=== PATIENT | male | born 1935 | race Caucasian/White ===

== ENCOUNTER 2018-10-30 17:49 | Inpatient (IN) | payer MEDICARE ==
--- NOTE | 2018-10-30 17:54 | ER Document Report ---
ED General - General Stated Complaint: SHORTNESS OF BREATH Notes: Patient is a 83-year-old male with COPD and chronic kidney disease that presents to the emergency department for chief complaint of shortness of breath or difficulty breathing. Patient states that he started having difficulty b reathing earlier today and got progressively worse over the course of the day, denies associated chest pain. He does state he has COPD, was given Solu-Medrol and 2 breathing treatments by EMS, and placed on CPAP, which did improve his breathing. He states he usually wears 2-1/2 L of oxygen by nasal cannula at home 24 hours a day. He denies any nausea, vomiting, diaphoresis, lightheadedness, dizziness, abdominal pain, dysuria hematuria recently. Past Medical History: COPD, emphysema, hypertension, chronic kidney disease Past Surgical History: Denies recent or pertinent surgical history Social History: Former smoker, denies current alcohol or drug use. Family History: Reviewed and noncontributory for presenting illness Allergies: Reviewed, see documented allergy list. REVIEW OF SYSTEMS: Other than noted above, the 12 point review of systems was reviewed with the patient and were negative, all pertinent findings are included in the HPI. PHYSICAL EXAMINATION: Vital signs reviewed, nursing noted reviewed. GENERAL: Elderly male, noted to be in acute respiratory distress. HEAD: Atraumatic, normocephalic. EYES: Eyes appear normal, extraocular movements intact, sclera anicteric, conjunctiva are normal. ENT: nares patent, oropharynx clear without exudates. Moist mucous membranes. NECK: Normal range of motion, supple without lymphadenopathy LUNGS: Coarse lung sounds throughout, rhonchi and wheezing noted in all lung yu. Patient is in respiratory distress. HEART: Heart rate borderline tachycardic, regular rhythm, no audible murmur. ABDOMEN: Soft, obese, nontender, normoactive bowel sounds. No rebound, guarding, or rigidity. No masses appreciated. EXTREMITIES: Bilateral lower extremity edema, with stasis skin changes, no signs of cellulitis. Distal pulses intact cap refill less than 3 seconds in all digits. NEUROLOGICAL: No focal neurological deficits. Moves all extremities spontaneously Motor and sensory grossly intact on exam. PSYCH: Increased work of breathing, patient answering questions appropriately, but has conversational dyspnea and is in distress SKIN: Warm, Dry, normal turgor, no rashes or lesions noted on exposed skin - Related Data Allergies/Adverse Reactions: No Known Allergies Allergy (Unverified 10/30/18 18:35) Past Medical History - Social History Smoking Status: Former Smoker Family History: Reviewed & Not Pertinent Physical Exam - Vital signs Vitals: Resp Pulse Ox 15 100 10/30/18 17:53 10/30/18 17:53 Course - Re-evaluation Re-evalutation: Patient seen and examined vital signs reviewed. Laboratory data and imaging were ordered as appropriate for the patient's presenting symptoms and complaint, with consideration of any critical or life threatening conditions that may be associated with their obtained history and exam as noted above. Patient was treated with BiPAP therapy, which she was improving on, is given IV Lasix, IV magnesium, is already received IV Solu-Medrol, and DuoNeb breathing treatments by EMS, he also received IV calcium gluconate and bicarb, for his mild hyperkalemia. Results were reviewed when available and demonstrated renal impairment, likely this patient's baseline although no prior for comparison, no leukocytosis, chest x-ray demonstrated scarring, but no focal infiltrate. The patient was re-evaluated and was improved on BiPAP Evaluation was most consistent with acute on chronic respiratory failure with hypercapnia, hyperkalemia Results were discussed with the patient at this point after careful consideration I feel that that patient should be admitted to the hospital. This was discussed with the patient that it is in the best interest for their care to be admitted for further evaluation and management. Patient agreed with this plan of care. A call was placed to the admitted physician, Dr. Caba who graciously accepted the patient onto their service. *Note is created using voice recognition software and may contain spelling, syntax or grammatical errors. Laboratory 10/30/18 10/30/18 10/30/18 18:10 18:10 18:10 WBC 6.6 RBC 4.44 Hgb 12.1 L Hct 37.6 L MCV 85 MCH 27.3 MCHC 32.3 RDW 14.9 H Plt Count 176 Seg Neutrophils % 73.2 Lymphocytes % 17.4 Monocytes % 6.7 Eosinophils % 2.6 Basophils % 0.1 Absolute Neutrophils 4.8 Absolute Lymphocytes 1.1 Absolute Monocytes 0.4 Absolute Eosinophils 0.2 Absolute Basophils 0.0 Carbonic Acid HCO3/H2CO3 Ratio ABG pH ABG pCO2 ABG pO2 ABG HCO3 ABG Total CO2 ABG O2 Saturation ABG Base Excess FiO2 Sodium 139.0 Potassium 5.7 H Chloride 106 Carbon Dioxide 24 Anion Gap 9 BUN 47 H Creatinine 2.15 H Est GFR ( Amer) 36 L Est GFR (Non-Af Amer) 30 L Glucose 187 H Lactic Acid Calcium 9.6 Total Bilirubin 0.3 Direct Bilirubin 0.3 Neonat Total Bilirubin Not Reportable Neonat Direct Bilirubin Not Reportable Neonat Indirect Bili Not Reportable AST 26 ALT 32 Alkaline Phosphatase 74 Troponin I 0.041 NT-Pro-B Natriuret Pep 500 H Total Protein 7.0 Albumin 4.1 Urine Color Urine Appearance Urine pH Ur Specific [place] Urine Protein Urine Glucose (UA) Urine Ketones Urine Blood Urine Nitrite Urine Bilirubin Urine Urobilinogen Ur Leukocyte Esterase Urine WBC (Auto) Urine RBC (Auto) U Hyaline Cast (Auto) Urine Ascorbic Acid 10/30/18 10/30/18 10/30/18 18:10 18:45 19:17 WBC RBC Hgb Hct MCV MCH MCHC RDW Plt Count Seg Neutrophils % Lymphocytes % Monocytes % Eosinophils % Basophils % Absolute Neutrophils Absolute Lymphocytes Absolute Monocytes Absolute Eosinophils Absolute Basophils Carbonic Acid 1.46 H HCO3/H2CO3 Ratio 15:1 ABG pH 7.30 L ABG pCO2 48.4 H ABG pO2 169.6 H ABG HCO3 23.3 ABG Total CO2 24.8 ABG O2 Saturation 99.0 H ABG Base Excess -3.3 FiO2 45% Sodium Potassium Chloride Carbon Dioxide Anion Gap BUN Creatinine Est GFR ( Amer) Est GFR (Non-Af Amer) Glucose Lactic Acid 0.9 Calcium Total Bilirubin Direct Bilirubin Neonat Total Bilirubin Neonat Direct Bilirubin Neonat Indirect Bili AST ALT Alkaline Phosphatase Troponin I NT-Pro-B Natriuret Pep Total Protein Albumin Urine Color STRAW Urine Appearance CLEAR Urine pH 6.0 Ur Specific [place] 1.012 Urine Protein >=500 H Urine Glucose (UA) 150 H Urine Ketones NEGATIVE Urine Blood NEGATIVE Urine Nitrite NEGATIVE Urine Bilirubin NEGATIVE Urine Urobilinogen NEGATIVE Ur Leukocyte Esterase NEGATIVE Urine WBC (Auto) 1 Urine RBC (Auto) 2 U Hyaline Cast (Auto) 1 Urine Ascorbic Acid NEGATIVE Chest X-Ray 10/30/18 17:51 IMPRESSION: No consolidation or pneumothorax. Right basilar subpleural scarring -subsegmental atelectasis. Chronic interstitial changes and small calcified granulomas. No significant pleural effusion. - Vital Signs Vital signs: Temp Pulse Resp BP Pulse Ox 98 F 24 H 192/71 H 100 10/30/18 18:46 10/30/18 20:46 10/30/18 20:31 10/30/18 20:46 - Laboratory Result Diagrams: 10/30/18 18:10 10/30/18 18:10 Laboratory results interpreted by me: 10/30/18 10/30/18 10/30/18 18:10 18:10 18:10 Hgb 12.1 L Hct 37.6 L RDW 14.9 H Carbonic Acid ABG pH ABG pCO2 ABG pO2 ABG O2 Saturation Potassium 5.7 H BUN 47 H Creatinine 2.15 H Est GFR ( Amer) 36 L Est GFR (Non-Af Amer) 30 L Glucose 187 H NT-Pro-B Natriuret Pep 500 H Urine Protein Urine Glucose (UA) 10/30/18 10/30/18 18:45 19:17 Hgb Hct RDW Carbonic Acid 1.46 H ABG pH 7.30 L ABG pCO2 48.4 H ABG pO2 169.6 H ABG O2 Saturation 99.0 H Potassium BUN Creatinine Est GFR ( Amer) Est GFR (Non-Af Amer) Glucose NT-Pro-B Natriuret Pep Urine Protein >=500 H Urine Glucose (UA) 150 H - EKG Interpretation by Me Additional EKG results interpreted by me: EKG demonstrates sinus rhythm with a ventricular rate of 81 bpm, there is T wave inversion in leads I, aVL, V5 and V6. No ST elevation, no prior for comparison. Critical Care Note - Critical Care Note Total time excluding time spent on procedures (mins): 40 Comments: Critical care time 40 minutes exclusive from separate billable procedures for a patient requiring complex medical decision making, and high potential for clinical deterioration. In a patient with acute on chronic respiratory failure requiring BiPAP, and hyperkalemia requiring treatment. Time spent obtaining history from patient or surrogate, discussions with consultants, development of treatment plan with patient or surrogate, evaluation of patient's response to t reatment, examination of patient, ordering and performing treatments and interventions, ordering and review of laboratory studies, re-evaluation of patient's condition, ordering and review of radiographic studies and review of old charts Discharge - Discharge Clinical Impression: Hyperkalemia, Acute exacerbation of chronic obstructive pulmonary disease (COPD) Acute and chronic respiratory failure Qualifiers: Respiratory failure complication: hypercapnia Qualified Code(s): J96.22 - Acute and chronic respiratory failure with hypercapnia Condition: Stable Disposition: ADMITTED INPATIENT Admitting Provider: Rosales (Hospitalist) Unit Admitted: [facility]
--- NOTE | 2018-10-30 18:33 | RADIOLOGY REPORT (SQ) ---
EXAM DESCRIPTION: CHEST SINGLE VIEW COMPLETED DATE/TIME: 10/30/2018 6:16 pm REASON FOR STUDY: bed mp db COMPARISON: None. EXAM PARAMETERS: NUMBER OF VIEWS: One view. TECHNIQUE: Single frontal radiographic view of the chest acquired. RADIATION DOSE: NA LIMITATIONS: None. FINDINGS: LUNGS AND PLEURA: No consolidation or pneumothorax. Right basilar subpleural scarring -luis bsegmental atelectasis. Chronic interstitial changes and small calcified granulomas. No significant pleural effusion. MEDIASTINUM AND HILAR STRUCTURES: No masses. Contour normal. HEART AND VASCULAR STRUCTURES: Heart normal in size. Normal vasculature. BONES: No acute findings. HARDWARE: None in the chest. OTHER: No other significant finding. IMPRESSION: No consolidation or pneumothorax. Right basilar subpleural scarring -subsegmental atele ctasis. Chronic interstitial changes and small calcified granulomas. No significant pleural effusio n. TECHNICAL DOCUMENTATION: JOB ID: [id number] 2010 [employer]- All Rights Reserved Reading location - IP/workstation name: [email or web address]
[2018-10-30 18:39] LABS: ABSOLUTE EOSINOPHILS # (AUTO) 0.2 10^3/uL (0.0-0.6); ABSOLUTE LYMPHOCYTES (AUTO) 1.1 10^3/uL (0.5-4.7); ABSOLUTE MONOCYTES (AUTO) 0.4 10^3/uL (0.1-1.4); ABSOLUTE NEUT (AUTO) 4.8 10^3/uL (1.7-8.2); BASOPHILS % (AUTO) 0.1 % (0-2); EOSINOPHILS % (AUTO) 2.6 % (0-6); HEMATOCRIT 37.6 % (37.9-51.0); HEMOGLOBIN 12.1 g/dL (13.5-17.0); LYMPHOCYTES % (AUTO) 17.4 % (13-45); MEAN CORPUSCULAR HEMOGLOBIN 27.3 pg (27.0-33.4); MEAN CORPUSCULAR HGB CONC 32.3 g/dL (32.0-36.0); MEAN CORPUSCULAR VOLUME 85 fl (80-97); MONOCYTES % (AUTO) 6.7 % (3-13); PLATELET COUNT 176 10^3/uL (150-450); RED BLOOD COUNT 4.44 10^6/uL (4.35-5.55); RED CELL DISTRIBUTION WIDTH 14.9 % (11.5-14.0); SEGMENTED NEUTROPHILS % (AUTO) 73.2 % (42-78); TOTAL CELLS COUNTED % (AUTO) 100 %; WHITE BLOOD COUNT 6.6 10^3/uL (4.0-10.5)
[2018-10-30 18:54] LABS: ALANINE AMINOTRANSFERASE 32 U/L (21-72); ALBUMIN 4.1 g/dL (3.5-5.0); ALKALINE PHOSPHATASE 74 U/L (38-126); ANION GAP 9 (5-19); ASPARTATE AMINO TRANSFERASE 26 U/L (17-59); BILIRUBIN,DIRECT 0.3 mg/dL (0.0-0.4); BILIRUBIN,TOTAL 0.3 mg/dL (0.2-1.3); BLOOD UREA NITROGEN 47 mg/dL (7-20); CALCIUM 9.6 mg/dL (8.4-10.2); CARBON DIOXIDE 24 mmol/L (22-30); CHLORIDE 106 mmol/L (98-107); GLUCOSE 187 mg/dL (75-110); POTASSIUM 5.7 mmol/L (3.6-5.0)
[2018-10-30] MEDS ORDERED: CALCIUM GLUCONATE 1000 MG/10 ML INJ IV ONE (18:59)
[2018-10-30] MEDS ORDERED: FUROSEMIDE INJ/PF 20 MG/2 ML SDV IV ONE (18:59)
[2018-10-30] MEDS ORDERED: SODIUM BICARBONATE 8.4% INJ 50 MEQ/50 ML DISP.SYRIN IV ONE (19:00)
[2018-10-30 19:12] LABS: APPEARANCE,URINE CLEAR; BILIRUBIN,URINE NEGATIVE (NEGATIVE); COLOR,URINE STRAW; GLUCOSE, URINE 150 mg/dL (NEGATIVE); KETONES,URINE NEGATIVE (NEGATIVE); LEUKOCYTE ESTERASE,URINE NEGATIVE (NEGATIVE); NITRITE,URINE NEGATIVE (NEGATIVE); PROTEIN,URINE >=500 mg/dL (NEGATIVE); URINE SPECIFIC GRAVITY 1.012; UROBILINOGEN,URINE NEGATIVE mg/dL (<2.0)
[2018-10-30 19:14] LABS: TROPONIN I 0.041 ng/mL
[2018-10-30 19:41] LABS: ARTERIAL BLOOD BASE EXCESS -3.3 mmol/L; ARTERIAL BLOOD H2CO3 1.46 mmol/L (1.05-1.35); ARTERIAL BLOOD HCO3 23.3 mmol/L (20-24); ARTERIAL BLOOD PCO2 48.4 mmHg (35-45); ARTERIAL BLOOD PO2 169.6 mmHg (80-100); ARTERIAL BLOOD TOTAL CO2 24.8 mmol/L (23-27)
[2018-10-30 19:42] LABS: ARTERIAL BLOOD FIO2 45%
[2018-10-30] MEDS: MAGNESIUM SULFATE/D5W 1 GM/100 ML RTUPB IV SCH ×2 (19:44→20:39)
[2018-10-30] MEDS ORDERED: LEVALBUTEROL HCL NEB 0.63 MG/3 ML AMPUL NEB PRN (20:28)
[2018-10-30] MEDS ORDERED: MAG HYDROX/AL HYDROX/SIMETH SUSP 30 ML UDCUP PO PRN (20:28)
[2018-10-30] MEDS ORDERED: ONDANSETRON HCL INJ/PF 4 MG/2 ML SDV IV PRN (20:28)
[2018-10-30] MEDS ORDERED: TEMAZEPAM 7.5 MG CAPSULE PO PRN (20:28)
[2018-10-30] MEDS ORDERED: DEXTROSE 40% GEL 15 GM TUBE PO PRN ×2 (20:44)
[2018-10-30] MEDS ORDERED: GLUCAGON,HUMAN RECOMB 1 MG INJ IM PRN (20:44)
[2018-10-30] MEDS ORDERED: DEXTROSE 50%-WATER 25 GM/50 ML DISP.SYRIN IV PRN ×2 (20:44)
[2018-10-30] MEDS ORDERED: NALBUPHINE HCL INJ 10 MG/1 ML AMPULE IV PRN ×2 (20:45→21:30)
[2018-10-30] MEDS ORDERED: ACETAMINOPHEN 325 MG TABLET PO PRN (20:45)
--- NOTE | 2018-10-30 22:54 | EKG REPORT ---
SEVERITY:- ABNORMAL ECG - SINUS ARRHYTHMIA, RATE [id number] REPOL ABNRM SUGGESTS ISCHEMIA, LATERAL LEADS : Confirmed by: Alanna Lou 30-Oct-2018 22:54:22
--- NOTE | 2018-10-30 23:02 | PDOC H&P ---
History of Present Illness Admission Date/PCP: 10/30/2018 JAY MILKA Patient complains of: Dyspnea History of Present Illness: ESPERANZA MEANS is a 83 year old male who presented to the emergency room via EMS with an acute history of dyspnea. He admits developing increased dyspnea earlier in the day that progressively worsened to severe dyspnea at rest, causing him to summon EMS to bring him to the hospital. He denies additional symptoms associated with his increased dyspnea but admits to chronic orthopnea and sleeping in a recliner instead of the bed. He further denies any identified aggravating or ameliorating factors for his dyspnea but notes that it did not improve utilizing his continuous use home O2 at 2-1/2 L/min per nasal cannula and his home nebulizer therapy. He admits having prior similar episodes related to his COPD. During his transport via EMS he was placed on CPAP and given intravenous Solu-Medrol as well as 2 nebulizer treatments with DuoNeb, all of which improved his respiratory status prior to his arrival in the emergency room. In the ER he was found to be significantly hypoxic and having significant work of breathing resulting he is being placed on BiPAP. He was further noted to have chronic renal insufficiency and elevated potassium 5.7. He responded well to BiPAP therapy and will subsequently be admitted to the hospital for further evaluation and continued treatment. 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 Denies: Asthma EENT Medical History: Denies: Cataracts, Ears - Hearing aids Neurological Medical History: Denies: Hemorrhagic CVA, Ischemic CVA, Seizures Endocrine Medical History: Reports: Diabetes Mellitus Type 2, Obesity Denies: Diabetes Mellitus Type 1, Hyperthyroidism, Hypothyroidism Renal/ Medical History: Reports: Chronic Kidney Disease Denies: Nephrolithiasis Malignancy Medical History: Reports: None GI Medical History: Denies: Cirrhosis, Hepatitis Musculoskeltal Medical History: Denies: Arthritis, Fibromyalgia Skin Medical History: Denies: Eczema, Psoriasis Psychiatric Medical History: Reports: Alcohol Dependency, Tobacco Dependency Denies: Substance Abuse Traumatic Medical History: Reports: None Hematology: Denies: Anemia, Bleeding Tendencies Infectious Medical History: Reports: None Past Surgical History Past Surgical History: Reports: None Social History Information Source: Patient Lives with: Spouse/Significant other Smoking Status: Former Smoker Frequency of Alcohol Use: None Hx Recreational Drug Use: No Drugs: None Hx Prescription Drug Abuse: No - Advance Directive Resuscitation Status: Full Code Surrogate healthcare decision maker:: Candice Canales Family History Family History: CAD, DM, Hypertension. denies: Malignancy Parental Family History Reviewed: Yes Children Family History Reviewed: No Sibling(s) Family History Reviewed.: Yes Medication/Allergy Allergies/Adverse Reactions: No Known Allergies Allergy (Unverified 10/30/18 18:35) Review of Systems Constitutional: ABSENT: chills, fever(s) Eyes: ABSENT: visual disturbances, other - Eye pain Ears: ABSENT: hearing changes, other - Ear pain Nose, Mouth, and Throat: ABSENT: mouth pain, sore throat Cardiovascular: PRESENT: as per HPI, dyspnea on exertion, edema - Bilateral low er extremities, chronic, orthropnea - Chronic. ABSENT: chest pain, palpitations Respiratory: PRESENT: dyspnea. ABSENT: cough Gastrointestinal: ABSENT: abdominal pain, constipation, diarrhea, nausea, vomiting Genitourinary: ABSENT: dysuria, hematuria Musculoskeletal: ABSENT: back pain, joint swelling, muscle weakness Integumentary: ABSENT: pruritus, rash Neurological: ABSENT: confusion, convulsions, focal weakness, memory loss, syncope Psychiatric: ABSENT: anxiety, depression Endocrine: ABSENT: cold intolerance, heat intolerance Hematologic/Lymphatic: ABSENT: easy bleeding, easy bruising Physical Exam Vital Signs: Temp Pulse Resp BP Pulse Ox 98 F 17 157/74 H 100 10/30/18 18:46 10/30/18 19:02 10/30/18 19:02 10/30/18 19:02 Intake & Output 10/28/18 10/29/18 10/30/18 23:59 23:59 23:59 Weight 90 kg General appearance: PRESENT: cooperative, mild distress - Secondary to dyspnea, obese Head exam: PRESENT: atraumatic, normocephalic Eye exam: ABSENT: conjunctival injection, scleral icterus Ear exam: PRESENT: normal external ear exam. ABSENT: bleeding, drainage Mouth exam: PRESENT: dry mucosa, neck supple Neck exam: PRESENT: JVD - Bilateral at 45 degrees. ABSENT: thyromegaly, tracheal deviation Respiratory exam: PRESENT: accessory muscle use - Mild accessory muscle use off BiPAP, decreased breath sounds - Moderately decreased breath sounds throughout all yu consistent with moderate to severe COPD, prolonged expiratory phas - Moderately prolonged expiratory phase with all yu, retraction - Minimal supraclavicular and sub-clavicular retractions off BiPAP, symmetrical, tachypnea, wheezes - Expiratory wheezes present throughout all yu Cardiovascular exam: PRESENT: RRR. ABSENT: clicks, gallop, rubs Pulses: PRESENT: normal radial pulses, normal dorsalis pedis pul Vascular exam: PRESENT: normal capillary refill. ABSENT: pallor GI/Abdominal exam: PRESENT: normal bowel sounds, soft Rectal exam: PRESENT: deferred Extremities exam: PRESENT: +1 edema - 1+ pitting pretibial edema bilaterally. ABSENT: joint swelling Musculoskeletal exam: PRESENT: full ROM, other - Chronic venous stasis changes of the bilateral lower extremities with eczematoid dermatitis. ABSENT: deformity, dislocation, tenderness Neurological exam: PRESENT: alert, oriented to person, oriented to place, oriented to time, oriented to situation, CN II-XII grossly intact. ABSENT: motor sensory deficit Psychiatric exam: PRESENT: appropriate affect, normal mood Skin exam: PRESENT: dry, intact, rash - Chronic venous stasis changes of the bilateral lower extremities with eczematoid dermatitis, warm. ABSENT: jaundice, urticaria Results Laboratory Results: 10/30/18 18:10 10/30/18 18:10 10/30/18 10/30/18 10/30/18 18:10 18:10 18:10 WBC 6.6 RBC 4.44 Hgb 12.1 L Hct 37.6 L MCV 85 MCH 27.3 MCHC 32.3 RDW 14.9 H Plt Count 176 Seg Neutrophils % 73.2 Lymphocytes % 17.4 Monocytes % 6.7 Eosinophils % 2.6 Basophils % 0.1 Absolute Neutrophils 4.8 Absolute Lymphocytes 1.1 Absolute Monocytes 0.4 Absolute Eosinophils 0.2 Absolute Basophils 0.0 Carbonic Acid HCO3/H2CO3 Ratio ABG pH ABG pCO2 ABG pO2 ABG HCO3 ABG O2 Saturation ABG Base Excess FiO2 Sodium 139.0 Potassium 5.7 H Chloride 106 Carbon Dioxide 24 Anion Gap 9 BUN 47 H Creatinine 2.15 H Est GFR ( Amer) 36 L Est GFR (Non-Af Amer) 30 L Glucose 187 H Lactic Acid 0.9 Calcium 9.6 Total Bilirubin 0.3 AST 26 ALT 32 Alkaline Phosphatase 74 Total Protein 7.0 Albumin 4.1 Urine Color Urine Appearance Urine pH Ur Specific [place] Urine Protein Urine Glucose (UA) Urine Ketones Urine Blood Urine Nitrite Ur Leukocyte Esterase Urine WBC (Auto) Urine RBC (Auto) 10/30/18 10/30/18 18:45 19:17 WBC RBC Hgb Hct MCV MCH MCHC RDW Plt Count Seg Neutrophils % Lymphocytes % Monocytes % Eosinophils % Basophils % Absolute Neutrophils Absolute Lymphocytes Absolute Monocytes Absolute Eosinophils Absolute Basophils Carbonic Acid 1.46 H HCO3/H2CO3 Ratio 15:1 ABG pH 7.30 L ABG pCO2 48.4 H ABG pO2 169.6 H ABG HCO3 23.3 ABG O2 Saturation 99.0 H ABG Base Excess -3.3 FiO2 45% Sodium Potassium Chloride Carbon Dioxide Anion Gap BUN Creatinine Est GFR ( Amer) Est GFR (Non-Af Amer) Glucose Lactic Acid Calcium Total Bilirubin AST ALT Alkaline Phosphatase Total Protein Albumin Urine Color STRAW Urine Appearance CLEAR Urine pH 6.0 Ur Specific [place] 1.012 Urine Protein >=500 H Urine Glucose (UA) 150 H Urine Ketones NEGATIVE Urine Blood NEGATIVE Urine Nitrite NEGATIVE Ur Leukocyte Esterase NEGATIVE Urine WBC (Auto) 1 Urine RBC (Auto) 2 10/30/18 18:10 Troponin I 0.041 NT-Pro-B Natriuret Pep 500 H Impressions: Chest X-Ray 10/30/18 17:51 IMPRESSION: No consolidation or pneumothorax. Right basilar subpleural scarring -subsegmental atelectasis. Chronic interstitial changes and small calcified granulomas. No significant pleural effusion. Assessment and Plan - Diagnosis (1) Acute on chronic respiratory failure with hypoxia and hypercapnia Is this a current diagnosis for this admission?: Yes Plan: Patient will be continued on supplemental oxygen utilizing BiPAP or nasal cannula as tolerated. His O2 sat will be maintained at 88 to 92%. Pulmonology consultation will be obtained with Dr. Schmitz for evaluation and treatment to po ssibly include a home CPAP, BiPAP or Trilogy device. (2) Acute exacerbation of chronic obstructive pulmonary disease (COPD) Is this a current diagnosis for this admission?: Yes Plan: Patient will be treated with an aggressive pulmonary toilet utilizing nebulized Xopenex, Pulmicort and Atrovent. He will also receive IV Solu-Medrol and supplemental oxygen as required. A pulmonary consultation with Dr. Schmitz will be obtained. His therapeutic assessment will include a daily CBC and a recheck of his venous blood gases to assess for persistent respiratory acidosis. Should he have any pain associated with his COPD he will receive Nubain 10 mg IV every 3 hours as needed. (3) Chronic renal disease, stage III Is this a current diagnosis for this admission?: Yes Plan: Patient has chronic renal insufficiency stage III to early stage IV disease. His renal status will be monitored on a daily basis with serial metabolic profiles. (4) Hyperkalemia Is this a current diagnosis for this admission?: Yes Plan: Patient was treated with a hyperkalemia protocol in the ER. His serum potassium will be monitored with daily metabolic profiles and a daily magnesium level. (5) Diabetes mellitus type 2 in obese Is this a current diagnosis for this admission?: Yes Plan: Patient be continued on his current therapy for diabetes with a hemoglobin A1c being checked to evaluate the efficacy of that therapy. Changes will be made as necessary. (6) Hypertension Qualifiers: Hypertension type: essential hypertension Qualified Code(s): I10 - Essential (primary) hypertension Is this a current diagnosis for this admission?: Yes Plan: The patient's antihypertensive regiment will be continued as possible through formulary substitution if required and therapeutic alteration if required to compensate for his hyperkalemia and renal insufficiency. - Time Time Spent with patient: 35 or more minutes Medications reviewed and adjusted accordingly: Yes Anticipated discharge: Home with Homehealth - Inpatient Certification Based on my medical assessment, after consideration of the patient's c omorbidities, presenting symptoms, or acuity I expect that the services needed warrant INPATIENT care.: Yes I certify that my determination is in accordance with my understanding of Medicare's requirements for reasonable and necessary INPATIENT services [42 CFR 412.3e].: Yes Medical Necessity: Significant Comorbidiites Make Outpatient Treatment Too Risky, Need Close Monitoring Due to Risk of Patient Decompensation, Need For Continuous Telemetry Monitoring, Need for Nebulizer Therapy and Monitoring of Response, Risk of Complication if Not Cared For in Hospital, Risk of Diagnosis Which Will Require Inpatient Eval/Care/Monitoring
[2018-10-30] MEDS ORDERED: LORAZEPAM INJ 2 MG/1 ML VIAL IV PRN (23:03)
[2018-10-30] MEDS: HEPARIN SOD (PORCINE) 5,000 UNIT/ML 1 ML SYRINGE SUBCUT SCH (23:18)
[2018-10-30] MEDS: METHYLPREDNISOLONE INJ 40 MG/1 ML SDV IV SCH (23:18)
[2018-10-30] MEDS: IPRATROPIUM BROMIDE 0.02% NEB 0.5 MG/2.5 ML AMPUL NEB SCH (23:19)
[2018-10-30] MEDS: LEVALBUTEROL HCL NEB 1.25 MG/3 ML AMPUL NEB SCH (23:19)
[2018-10-31] MEDS ORDERED: LEVALBUTEROL HCL NEB 1.25 MG/3 ML AMPUL NEB SCH
[2018-10-31] MEDS: INSULIN REG, HUMAN 100 UNIT/ML 3 ML VIAL (PYX) SUBCUT PRN ×2 (01:12→09:48)
[2018-10-31] MEDS: HYDRALAZINE HCL INJ/PF 20 MG/1 ML SDV IV PRN ×2 (01:13→09:47)
[2018-10-31 01:15] LABS: CREATINE KINASE MB 4.5 ng/mL (<4.55)
[2018-10-31 01:26] LABS: TROPONIN I 0.133 ng/mL
[2018-10-31] MEDS: METOPROLOL TARTRATE PF/INJ 5 MG/5 ML SDV IV SCH ×3 (03:21→03:32)
[2018-10-31] MEDS ORDERED: METOPROLOL TARTRATE 100 MG TABLET PO ONE (04:00)
[2018-10-31] MEDS: PANTOPRAZOLE SODIUM 40 MG TABLET.DR PO SCH (05:04)
[2018-10-31] MEDS: HEPARIN SOD (PORCINE) 5,000 UNIT/ML 1 ML SYRINGE SUBCUT SCH ×2 (05:04→21:08)
[2018-10-31 07:15] LABS: HEMATOCRIT 36.4 % (37.9-51.0); HEMOGLOBIN 11.9 g/dL (13.5-17.0); MEAN CORPUSCULAR HEMOGLOBIN 27.6 pg (27.0-33.4); MEAN CORPUSCULAR HGB CONC 32.6 g/dL (32.0-36.0); MEAN CORPUSCULAR VOLUME 85 fl (80-97); PLATELET COUNT 188 10^3/uL (150-450); RED CELL DISTRIBUTION WIDTH 15.2 % (11.5-14.0)
[2018-10-31 07:16] LABS: VENOUS BLOOD BASE EXCESS -2.8 mmol/L; VENOUS BLOOD HCO3 24.1 mmol/L (20-32); VENOUS BLOOD PCO2 50.4 mmHg (35-63); VENOUS BLOOD PH 7.3 (7.30-7.42)
[2018-10-31 07:37] LABS: ANION GAP 13 (5-19); BLOOD UREA NITROGEN 53 mg/dL (7-20); CALCIUM 9.8 mg/dL (8.4-10.2); CARBON DIOXIDE 24 mmol/L (22-30); CHLORIDE 102 mmol/L (98-107); CHOLESTEROL 206.92 mg/dL (0-200); GLUCOSE 232 mg/dL (75-110); SODIUM 138.6 mmol/L (137-145); TRIGLYCERIDES 63 mg/dL (<150)
[2018-10-31 07:48] LABS: DIRECT LDL 113 mg/dL (<100)
[2018-10-31 07:51] LABS: ABSOLUTE LYMPHOCYTES# (MANUAL) 0.4 10^3/uL (0.5-4.7); ABSOLUTE MONOCYTES # (MANUAL) 0.2 10^3/uL (0.1-1.4); ABSOLUTE NEUTROPHILS# (MANUAL) 9.4 10^3/uL (1.7-8.2); ANISOCYTOSIS SLIGHT; BASOPHILS % (MANUAL) 0 % (0-2); EOSINOPHILS % (MANUAL) 0 % (0-6); LYMPHOCYTES % (MANUAL) 4 % (13-45); MONOCYTES % (MANUAL) 2 % (3-13); PLATELET COMMENT ADEQUATE; SEGMENTED NEUTROPHILS % (MAN) 94 % (42-78); TOTAL CELLS COUNTED 100
[2018-10-31 07:54] LABS: CREATINE KINASE MB 4.43 ng/mL (<4.55); POTASSIUM 6.3 mmol/L (3.6-5.0)
[2018-10-31 07:55] LABS: FREE T3 2.9 pg/mL (2.77-5.27); FREE T4 (FREE THYROXINE) 0.77 ng/dL (0.78-2.19)
[2018-10-31 08:01] LABS: TROPONIN I 0.148 ng/mL
[2018-10-31 08:08] LABS: THYROID STIMULATING HORMONE 3.49 uIU/mL (0.47-4.68)
[2018-10-31] MEDS: IPRATROPIUM BROMIDE 0.02% NEB 0.5 MG/2.5 ML AMPUL NEB SCH ×2 (08:33→20:31)
[2018-10-31] MEDS: BUDESONIDE NEB 0.5 MG/2 ML AMPUL NEB SCH ×2 (08:33→20:31)
[2018-10-31] MEDS: LEVALBUTEROL HCL NEB 1.25 MG/3 ML AMPUL NEB SCH ×2 (08:33→20:31)
[2018-10-31] MEDS: DOCUSATE SODIUM 100 MG CAPSULE PO SCH ×2 (09:48→17:15)
[2018-10-31] MEDS: METHYLPREDNISOLONE INJ 40 MG/1 ML SDV IV SCH ×2 (09:48→21:09)
[2018-10-31] MEDS ORDERED: METOPROLOL TARTRATE 100 MG TABLET PO SCH (10:00)
[2018-10-31] MEDS ORDERED: LACTULOSE SYRUP 20 GM/30 ML UDCUP PO ONE (10:00)
[2018-10-31] MEDS ORDERED: ASPIRIN 81 MG TABLET, CHEWABLE PO ONE (10:00)
[2018-10-31] MEDS ORDERED: ENOXAPARIN SODIUM INJ 100 MG/1 ML DISP.SYRIN SUBCUT SCH (12:00)
[2018-10-31 12:33] LABS: ANION GAP 14 (5-19); BLOOD UREA NITROGEN 59 mg/dL (7-20); CARBON DIOXIDE 23 mmol/L (22-30); CHLORIDE 102 mmol/L (98-107); GLUCOSE 280 mg/dL (75-110); SODIUM 138.6 mmol/L (137-145)
[2018-10-31 12:35] LABS: POTASSIUM 6.3 mmol/L (3.6-5.0)
[2018-10-31 12:45] LABS: CREATINE KINASE MB 5.13 ng/mL (<4.55); TROPONIN I 0.173 ng/mL
[2018-10-31] MEDS: INSULIN REG, HUMAN 100 UNIT/ML 3 ML VIAL (PYX) SUBCUT SCH ×3 (12:50→21:16)
[2018-10-31] MEDS: LOSARTAN POTASSIUM 50 MG TABLET PO SCH (14:13)
[2018-10-31] MEDS: HYDROCHLOROTHIAZIDE 12.5 MG TABLET PO SCH (14:13)
[2018-10-31] MEDS: AMLODIPINE BESYLATE 5 MG TABLET PO SCH (14:14)
[2018-10-31] MEDS ORDERED: PATIROMER 8.4 GM SUSP PACKET PO ONE (14:30)
[2018-10-31] MEDS ORDERED: FUROSEMIDE INJ/PF 20 MG/2 ML SDV IV ONE (14:30)
--- NOTE | 2018-10-31 15:44 | PDOC PROGRESS REPORT ---
Subjective Progress Note for:: 10/31/18 Subjective:: The patient is an 83-year-old male with a past medical history of hypertension, COPD, chronic respiratory failure (home O2 dependent), DM 2, obesity, CKD, ad tobacco dependence with continuous use who presented to the emergency department last night with sudden onset shortness of breath found to be in COPD exacerbation Patient was seen on morning rounds. He is found resting in bed comfortably on supplemental oxygen via nasal cannula. He reports that he is feeling better this morning, so does continue to have increased dyspnea at rest as compared to his baseline. He did utilize BiPAP overnight with relief of symptoms; does not have home BiPAP or CPAP. He denies fever, chills, chest pain, palpitations, orthopnea, abdominal pain, nausea vomiting and diarrhea. He has no other questions or concerns at this time. No concerns per nursing. Reason For Visit: ACUTE AND CHRONIC RESPIRATORY FAILURE WITH HYPOXIA Physical Exam Vital Signs: Temp Pulse Resp BP Pulse Ox 97.3 F 71 20 179/57 H 100 10/31/18 12:39 10/31/18 12:39 10/31/18 12:39 10/31/18 12:39 10/31/18 12:39 Intake & Output 10/30/18 10/31/18 11/01/18 06:59 06:59 06:59 Intake Total 500 237 Output Total 275 350 Balance 225 -113 Weight 86.2 kg General appearance: PRESENT: no acute distress, cooperative, obese, well- developed, well-nourished Head exam: PRESENT: atraumatic, normocephalic Eye exam: PRESENT: conjunctiva pink, EOMI, PERRLA. ABSENT: scleral icterus Ear exam: PRESENT: normal external ear exam Mouth exam: PRESENT: moist, tongue midline Neck exam: ABSENT: carotid bruit, JVD, lymphadenopathy, thyromegaly Respiratory exam: PRESENT: prolonged expiratory phas, rhonchi, symmetrical, unlabored, other - Supplemental oxygen via nasal cannula. ABSENT: rales, wheezes Cardiovascular exam: PRESENT: RRR, +S1, +S2. ABSENT: diastolic murmur, rubs, systolic murmur Pulses: PRESENT: normal dorsalis pedis pul Vascular exam: PRESENT: normal capillary refill GI/Abdominal exam: PRESENT: normal bowel sounds, soft. ABSENT: distended, guarding, mass, organolmegaly, rebound, tenderness Rectal exam: PRESENT: deferred Extremities exam: PRESENT: full ROM. ABSENT: calf tenderness, clubbing, pedal edema Neurological exam: PRESENT: alert, awake, oriented to person, oriented to place, oriented to time, oriented to situation, CN II-XII grossly intact. ABSENT: motor sensory deficit Psychiatric exam: PRESENT: anxious, appropriate affect, normal mood. ABSENT: homicidal ideation, suicidal ideation Skin exam: PRESENT: dry, intact, warm. ABSENT: cyanosis, rash Results Laboratory Results: 10/31/18 06:22 10/31/18 12:04 10/30/18 10/30/18 10/30/18 18:10 18:10 18:10 WBC 6.6 RBC 4.44 Hgb 12.1 L Hct 37.6 L MCV 85 MCH 27.3 MCHC 32.3 RDW 14.9 H Plt Count 176 Seg Neutrophils % 73.2 Lymphocytes % 17.4 Monocytes % 6.7 Eosinophils % 2.6 Basophils % 0.1 Absolute Neutrophils 4.8 Absolute Lymphocytes 1.1 Absolute Monocytes 0.4 Absolute Eosinophils 0.2 Absolute Basophils 0.0 Carbonic Acid HCO3/H2CO3 Ratio ABG pH ABG pCO2 ABG pO2 ABG HCO3 ABG O2 Saturation ABG Base Excess VBG pH VBG pCO2 VBG HCO3 VBG Base Excess FiO2 Sodium 139.0 Potassium 5.7 H Chloride 106 Carbon Dioxide 24 Anion Gap 9 BUN 47 H Creatinine 2.15 H Est GFR ( Amer) 36 L Est GFR (Non-Af Amer) 30 L Glucose 187 H Lactic Acid 0.9 Calcium 9.6 Magnesium Total Bilirubin 0.3 AST 26 ALT 32 Alkaline Phosphatase 74 Total Protein 7.0 Albumin 4.1 Triglycerides Cholesterol LDL Cholesterol Direct VLDL Cholesterol HDL Cholesterol TSH Free T4 Free T3 pg/mL Urine Color Urine Appearance Urine pH Ur Specific [place] Urine Protein Urine Glucose (UA) Urine Ketones Urine Blood Urine Nitrite Ur Leukocyte Esterase Urine WBC (Auto) Urine RBC (Auto) 10/30/18 10/30/18 10/31/18 18:45 19:17 06:22 WBC 10.0 RBC 4.30 L Hgb 11.9 L Hct 36.4 L MCV 85 MCH 27.6 MCHC 32.6 RDW 15.2 H Plt Count 188 Seg Neutrophils % Not Reportable Lymphocytes % Not Reportable Monocytes % Not Reportable Eosinophils % Not Reportable Basophils % Not Reportable Absolute Neutrophils Not Reportable Absolute Lymphocytes Not Reportable Absolute Monocytes Not Reportable Absolute Eosinophils Not Reportable Absolute Basophils Not Reportable Carbonic Acid 1.46 H HCO3/H2CO3 Ratio 15:1 ABG pH 7.30 L ABG pCO2 48.4 H ABG pO2 169.6 H ABG HCO3 23.3 ABG O2 Saturation 99.0 H ABG Base Excess -3.3 VBG pH VBG pCO2 VBG HCO3 VBG Base Excess FiO2 45% Sodium Potassium Chloride Carbon Dioxide Anion Gap BUN Creatinine Est GFR ( Amer) Est GFR (Non-Af Amer) Glucose Lactic Acid Calcium Magnesium Total Bilirubin AST ALT Alkaline Phosphatase Total Protein Albumin Triglycerides Cholesterol LDL Cholesterol Direct VLDL Cholesterol HDL Cholesterol TSH Free T4 Free T3 pg/mL Urine Color STRAW Urine Appearance CLEAR Urine pH 6.0 Ur Specific [place] 1.012 Urine Protein >=500 H Urine Glucose (UA) 150 H Urine Ketones NEGATIVE Urine Blood NEGATIVE Urine Nitrite NEGATIVE Ur Leukocyte Esterase NEGATIVE Urine WBC (Auto) 1 Urine RBC (Auto) 2 10/31/18 10/31/18 10/31/18 06:22 06:22 06:22 WBC RBC Hgb Hct MCV MCH MCHC RDW Plt Count Seg Neutrophils % Lymphocytes % Monocytes % Eosinophils % Basophils % Absolute Neutrophils Absolute Lymphocytes Absolute Monocytes Absolute Eosinophils Absolute Basophils Carbonic Acid HCO3/H2CO3 Ratio ABG pH ABG pCO2 ABG pO2 ABG HCO3 ABG O2 Saturation ABG Base Excess VBG pH 7.30 VBG pCO2 50.4 VBG HCO3 24.1 VBG Base Excess -2.8 FiO2 Sodium 138.6 Potassium 6.3 H* Chloride 102 Carbon Dioxide 24 Anion Gap 13 BUN 53 H Creatinine 2.01 H Est GFR ( Amer) 39 L Est GFR (Non-Af Amer) 32 L Glucose 232 H Lactic Acid Calcium 9.8 Magnesium 2.5 H Total Bilirubin AST ALT Alkaline Phosphatase Total Protein Albumin Triglycerides 63 Cholesterol 206.92 H LDL Cholesterol Direct 113 H VLDL Cholesterol 13.0 HDL Cholesterol 74 TSH 3.49 Free T4 0.77 L Free T3 pg/mL 2.90 Urine Color Urine Appearance Urine pH Ur Specific [place] Urine Protein Urine Glucose (UA) Urine Ketones Urine Blood Urine Nitrite Ur Leukocyte Esterase Urine WBC (Auto) Urine RBC (Auto) 10/31/18 12:04 WBC RBC Hgb Hct MCV MCH MCHC RDW Plt Count Seg Neutrophils % Lymphocytes % Monocytes % Eosinophils % Basophils % Absolute Neutrophils Absolute Lymphocytes Absolute Monocytes Absolute Eosinophils Absolute Basophils Carbonic Acid HCO3/H2CO3 Ratio ABG pH ABG pCO2 ABG pO2 ABG HCO3 ABG O2 Saturation ABG Base Excess VBG pH VBG pCO2 VBG HCO3 VBG Base Excess FiO2 Sodium 138.6 Potassium 6.3 H* Chloride 102 Carbon Dioxide 23 Anion Gap 14 BUN 59 H Creatinine 1.84 H Est GFR ( Amer) 43 L Est GFR (Non-Af Amer) 35 L Glucose 280 H Lactic Acid Calcium 10.0 Magnesium Total Bilirubin AST ALT Alkaline Phosphatase Total Protein Albumin Triglycerides Cholesterol LDL Cholesterol Direct VLDL Cholesterol HDL Cholesterol TSH Free T4 Free T3 pg/mL Urine Color Urine Appearance Urine pH Ur Specific [place] Urine Protein Urine Glucose (UA) Urine Ketones Urine Blood Urine Nitrite Ur Leukocyte Esterase Urine WBC (Auto) Urine RBC (Auto) 10/30/18 10/31/18 10/31/18 18:10 00:30 00:30 Creatine Kinase 156 CK-MB (CK-2) 4.50 Troponin I 0.041 0.133 NT-Pro-B Natriuret Pep 500 H 10/31/18 10/31/18 10/31/18 06:22 06:22 12:04 Creatine Kinase 175 H 208 H CK-MB (CK-2) 4.43 Troponin I 0.148 NT-Pro-B Natriuret Pep 10/31/18 12:04 Creatine Kinase CK-MB (CK-2) 5.13 H Troponin I 0.173 NT-Pro-B Natriuret Pep Impressions: Chest X-Ray 10/30/18 17:51 IMPRESSION: No consolidation or pneumothorax. Right basilar subpleural scarring -subsegmental atelectasis. Chronic interstitial changes and small calcified granulomas. No significant pleural effusion. Assessment and Plan - Diagnosis (1) Acute exacerbation of chronic obstructive pulmonary disease (COPD) Is this a current diagnosis for this admission?: Yes Plan: Patient with report of end-stage COPD; home O2 dependent 2 L/min. Chest x-ray demonstrated chronic interstitial changes, right basilar subpleural scarring and subsegmental atelectasis. No acute findings. Patient is admitted to [facility] on continuous cardiac telemetry. He is provided supplemental oxygen and BiPAP as needed to maintain saturations >89% He is provided scheduled and as needed nebulizer treatments. He is provided IV Solu-Medrol. Mucinex twice daily. Incentive spirometer and flutter valve. (2) Acute on chronic respiratory failure with hypoxia and hypercapnia Is this a current diagnosis for this admission?: Yes Plan: Secondary to COPD exacerbation. Management as above. (3) Chronic renal disease, stage III Is this a current diagnosis for this admission?: Yes Plan: Stable; admitted with creatinine of 2.15 which has trended down to 1.84 this afternoon. Avoid nephrotoxic medications as able.. Daily chemistries. (4) Diabetes mellitus type 2 in obese Is this a current diagnosis for this admission?: Yes Plan: Consistent carb diet. Accu-Cheks before meals and at bedtime with Humalog for sliding scale coverage. Hypoglycemia protocol. (5) Hyperkalemia Is this a current diagnosis for this admission?: Yes Plan: Patient was admitted with a potassium of 5.7; has trended up to 6.3. Did not appear to respond to lactulose x1. Continuing scheduled albuterol and IV Lasix. Start Veltassa (6) Hypertension Qualifiers: Hypertension type: essential hypertension Qualified Code(s): I10 - Essential (primary) hypertension Is this a current diagnosis for this admission?: Yes Plan: Resume the patient's outpatient regimen of amlodipine, clonidine 0.1 mg every 12 hours, losartan 100 mg daily, and hydrochlorothiazide. IV hydralazine as needed for blood pressure control. Cardiac diet. (7) Elevated troponin Is this a current diagnosis for this admission?: Yes Plan: On admission patient's troponin was found to be 0.041, has trended up to 0.173. Patient is chest pain-free. We will continue to trend troponins. EKG this morning showed subtle changes; discussed with Dr. Calix. EKG now demonstrating LVH with strain. He advises that the elevated troponin is likely secondary to demand mismatch ischemia; recommends optimization of respiratory status. Continue daily aspirin and statin therapy. Continue cardiac diet. Management of hypertension as above. Recommend outpatient follow-up with cardiology and stress testing once acute COPD exacerbation is resolved. - Time Time Spent with patient: 25-34 minutes Medications reviewed and adjusted accordingly: Yes Anticipated discharge: Home Within: within 48 hours
[2018-10-31] MEDS ORDERED: CLONIDINE HCL 0.1 MG TABLET PO ONE (16:55)
[2018-10-31] MEDS ORDERED: METOPROLOL SUCCINATE 50 MG TAB.SR.24H PO ONE ×2 (19:45→20:00)
[2018-10-31] MEDS: CLONIDINE HCL 0.1 MG TABLET PO SCH (21:08)
[2018-10-31] MEDS: GUAIFENESIN 600 MG TABLET.SA PO SCH (21:09)
--- NOTE | 2018-10-31 22:36 | EKG REPORT ---
SEVERITY:- ABNORMAL ECG - SINUS RHYTHM FIRST DEGREE AV BLOCK INCOMPLETE LEFT BUNDLE BRANCH BLOCK ANTERIOR Q WAVES, POSSIBLY DUE TO ILBBB LVH : Confirmed by: Alanna Lou 31-Oct-2018 22:35:38
[2018-11-01] MEDS: IPRATROPIUM BROMIDE 0.02% NEB 0.5 MG/2.5 ML AMPUL NEB SCH ×4 (02:04→21:10)
[2018-11-01] MEDS: LEVALBUTEROL HCL NEB 1.25 MG/3 ML AMPUL NEB SCH ×4 (02:04→21:10)
[2018-11-01] MEDS: PANTOPRAZOLE SODIUM 40 MG TABLET.DR PO SCH (05:34)
[2018-11-01] MEDS: HEPARIN SOD (PORCINE) 5,000 UNIT/ML 1 ML SYRINGE SUBCUT SCH ×3 (05:34→21:36)
[2018-11-01 06:47] LABS: HEMATOCRIT 35.3 % (37.9-51.0); HEMOGLOBIN 11.4 g/dL (13.5-17.0); MEAN CORPUSCULAR HEMOGLOBIN 27.4 pg (27.0-33.4); MEAN CORPUSCULAR HGB CONC 32.3 g/dL (32.0-36.0); MEAN CORPUSCULAR VOLUME 85 fl (80-97); PLATELET COUNT 167 10^3/uL (150-450); RED BLOOD COUNT 4.16 10^6/uL (4.35-5.55); RED CELL DISTRIBUTION WIDTH 15.1 % (11.5-14.0); WHITE BLOOD COUNT 13.8 10^3/uL (4.0-10.5)
[2018-11-01 07:01] LABS: ANION GAP 11 (5-19); BLOOD UREA NITROGEN 72 mg/dL (7-20); CALCIUM 9.3 mg/dL (8.4-10.2); CARBON DIOXIDE 24 mmol/L (22-30); CHLORIDE 102 mmol/L (98-107); GLUCOSE 215 mg/dL (75-110); SODIUM 137.1 mmol/L (137-145)
[2018-11-01 07:11] LABS: ABSOLUTE LYMPHOCYTES# (MANUAL) 1.2 10^3/uL (0.5-4.7); ABSOLUTE MONOCYTES # (MANUAL) 0.3 10^3/uL (0.1-1.4); ABSOLUTE NEUTROPHILS# (MANUAL) 12.3 10^3/uL (1.7-8.2); BASOPHILS % (MANUAL) 0 % (0-2); EOSINOPHILS % (MANUAL) 0 % (0-6); LYMPHOCYTES % (MANUAL) 9 % (13-45); MONOCYTES % (MANUAL) 2 % (3-13); SEGMENTED NEUTROPHILS % (MAN) 89 % (42-78); TOTAL CELLS COUNTED 100
[2018-11-01 07:12] LABS: ANISOCYTOSIS SLIGHT; OVALOCYTES SLIGHT; PLATELET COMMENT ADEQUATE; POIKILOCYTOSIS SLIGHT
[2018-11-01 07:17] LABS: POTASSIUM 6.6 mmol/L (3.6-5.0)
[2018-11-01] MEDS: BUDESONIDE NEB 0.5 MG/2 ML AMPUL NEB SCH (08:15)
[2018-11-01] MEDS: HYDROCHLOROTHIAZIDE 12.5 MG TABLET PO SCH ×2 (08:40→09:11)
[2018-11-01] MEDS: INSULIN REG, HUMAN 100 UNIT/ML 3 ML VIAL (PYX) SUBCUT SCH ×4 (08:40→21:36)
[2018-11-01] MEDS ORDERED: LACTULOSE SYRUP 20 GM/30 ML UDCUP PO ONE (09:00)
[2018-11-01] MEDS: CLONIDINE HCL 0.1 MG TABLET PO SCH ×2 (09:18→21:36)
[2018-11-01] MEDS: DOCUSATE SODIUM 100 MG CAPSULE PO SCH ×2 (09:18→18:40)
[2018-11-01] MEDS: LOSARTAN POTASSIUM 50 MG TABLET PO SCH (09:18)
[2018-11-01] MEDS: ASPIRIN 81 MG TABLET, ENT COATED PO SCH (09:18)
[2018-11-01] MEDS: METHYLPREDNISOLONE INJ 40 MG/1 ML SDV IV SCH (09:19)
[2018-11-01] MEDS: GUAIFENESIN 600 MG TABLET.SA PO SCH ×2 (09:19→21:36)
[2018-11-01] MEDS: AMLODIPINE BESYLATE 5 MG TABLET PO SCH (09:19)
[2018-11-01] MEDS ORDERED: PATIROMER 8.4 GM SUSP PACKET PO ONE ×2 (09:30→13:00)
[2018-11-01] MEDS ORDERED: METOPROLOL SUCCINATE 50 MG TAB.SR.24H PO SCH ×3 (10:00)
[2018-11-01] MEDS ORDERED: FUROSEMIDE INJ/PF 20 MG/2 ML SDV IV ONE (14:22)
[2018-11-01] MEDS ORDERED: PREDNISONE 20 MG TABLET PO SCH (14:30)
--- NOTE | 2018-11-01 14:38 | PDOC PROGRESS REPORT ---
Subjective Progress Note for:: 11/01/18 Subjective:: The patient is an 83-year-old male with a past medical history of hypertension, COPD, chronic respiratory failure (home O2 dependent), DM 2, obesity, CKD, ad tobacco dependence with continuous use who presented to the emergency department last night with sudden onset shortness of breath found to be in COPD exacerbation Patient was seen on morning rounds. He is found sitting up to the edge of the bed comfortably on supplemental oxygen via nasal cannula at his baseline requirement. He reports that he feels well today; though with slight increase in dyspnea and cough from baseline. Hopeful to d/c home tomorrow. He denies fever, chills, chest pain, palpitations, orthopnea, abdominal pain, nausea vomiting and diarrhea. He has no other questions or concerns at this time. No concerns per nursing. Reason For Visit: ACUTE AND CHRONIC RESPIRATORY FAILURE WITH HYPOXIA Physical Exam Vital Signs: Temp Pulse Resp BP Pulse Ox 97.6 F 62 20 141/61 H 97 11/01/18 03:11 11/01/18 14:10 11/01/18 14:10 11/01/18 03:11 11/01/18 14:10 Intake & Output 10/31/18 11/01/18 11/02/18 06:59 06:59 06:59 Intake Total 500 860 237 Output Total 275 1300 250 Balance 225 -440 -13 Weight 86.2 kg 86.8 kg General appearance: PRESENT: no acute distress, cooperative, obese, well- developed, well-nourished Head exam: PRESENT: atraumatic, normocephalic Eye exam: PRESENT: conjunctiva pink, EOMI, PERRLA. ABSENT: scleral icterus Mouth exam: PRESENT: moist, tongue midline Neck exam: ABSENT: carotid bruit, JVD, lymphadenopathy, thyromegaly Respiratory exam: PRESENT: prolonged expiratory phas, rhonchi, symmetrical, unlabored, wheezes - scant, other - baseline oxygen requirement. ABSENT: rales Cardiovascular exam: PRESENT: RRR, +S1, +S2. ABSENT: diastolic murmur, rubs, systolic murmur Pulses: PRESENT: normal dorsalis pedis pul Vascular exam: PRESENT: normal capillary refill GI/Abdominal exam: PRESENT: normal bowel sounds, soft. ABSENT: distended, guarding, mass, organolmegaly, rebound, tenderness Rectal exam: PRESENT: deferred Extremities exam: PRESENT: full ROM. ABSENT: calf tenderness, clubbing, pedal edema Neurological exam: PRESENT: alert, awake, oriented to person, oriented to place, oriented to time, oriented to situation, CN II-XII grossly intact. ABSENT: motor sensory deficit Psychiatric exam: PRESENT: appropriate affect, normal mood. ABSENT: homicidal ideation, suicidal ideation Skin exam: PRESENT: dry, intact, warm. ABSENT: cyanosis, rash Results Laboratory Results: 11/01/18 06:25 11/01/18 06:25 11/01/18 11/01/18 06:25 06:25 WBC 13.8 H RBC 4.16 L Hgb 11.4 L Hct 35.3 L MCV 85 MCH 27.4 MCHC 32.3 RDW 15.1 H Plt Count 167 Seg Neutrophils % Not Reportable Lymphocytes % Not Reportable Monocytes % Not Reportable Eosinophils % Not Reportable Basophils % Not Reportable Absolute Neutrophils Not Reportable Absolute Lymphocytes Not Reportable Absolute Monocytes Not Reportable Absolute Eosinophils Not Reportable Absolute Basophils Not Reportable Sodium 137.1 Potassium 6.6 H* Chloride 102 Carbon Dioxide 24 Anion Gap 11 BUN 72 H Creatinine 2.02 H Est GFR ( Amer) 38 L Est GFR (Non-Af Amer) 32 L Glucose 215 H Calcium 9.3 Magnesium 2.4 H 10/30/18 10/31/18 10/31/18 18:10 00:30 00:30 Creatine Kinase 156 CK-MB (CK-2) 4.50 Troponin I 0.041 0.133 NT-Pro-B Natriuret Pep 500 H 10/31/18 10/31/18 10/31/18 06:22 06:22 12:04 Creatine Kinase 175 H 208 H CK-MB (CK-2) 4.43 Troponin I 0.148 NT-Pro-B Natriuret Pep 10/31/18 10/31/18 11/01/18 12:04 17:45 10:22 Creatine Kinase CK-MB (CK-2) 5.13 H Troponin I 0.173 0.191 0.148 NT-Pro-B Natriuret Pep Impressions: Chest X-Ray 10/30/18 17:51 IMPRESSION: No consolidation or pneumothorax. Right basilar subpleural scarring -subsegmental atelectasis. Chronic interstitial changes and small calc ified granulomas. No significant pleural effusion. Assessment and Plan - Diagnosis (1) Acute exacerbation of chronic obstructive pulmonary disease (COPD) Is this a current diagnosis for this admission?: Yes Plan: Improved; now on baseline oxygen requirement w/ decreased dyspnea and cough Patient with report of end-stage COPD; home O2 dependent 2 L/min. Chest x-ray demonstrated chronic interstitial changes, right basilar subpleural scarring and subsegmental atelectasis. No acute findings. Patient is admitted to [facility] on continuous cardiac telemetry. He is provided supplemental oxygen and BiPAP as needed to maintain saturations >89% He is provided scheduled and as needed nebulizer treatments. Transition to p.o. prednisone. Will need to discharge on Spiriva and Serevent. Mucinex twice daily. Incentive spirometer and flutter valve. Ambulate in hallway (2) Acute on chronic respiratory failure with hypoxia and hypercapnia Is this a current diagnosis for this admission?: Yes Plan: Secondary to COPD exacerbation. Management as above. (3) Chronic renal disease, stage III Is this a current diagnosis for this admission?: Yes Plan: Stable; creatinine 2.15-> 2.01-> 1.84-> 2.02 Avoid nephrotoxic medications as able.. Daily chemistries. Recommend outpatient nephrology follow up. (4) Diabetes mellitus type 2 in obese Is this a current diagnosis for this admission?: Yes Plan: A1C 7.8% Consistent carb diet. Accu-Cheks before meals and at bedtime with Humalog for sliding scale coverage. Continue 1/2 home dose Lantus qHS Hypoglycemia protocol. Registered dietitian and search lead consulted. (5) Hyperkalemia Is this a current diagnosis for this admission?: Yes Plan: Persistent; medications have been reviewed. Unclear etiology. Patient was admitted with a potassium of 5.7; has trended up to 6.6. Continuing scheduled lactulose, albuterol and IV Lasix. Start Veltassa Repeat chemistry this afternoon; if remains elevated will consult nephrology. (6) Hypertension Qualifiers: Hypertension type: essential hypertension Qualified Code(s): I10 - Essential (primary) hypertension Is this a current diagnosis for this admission?: Yes Plan: Resume the patient's outpatient regimen of amlodipine, clonidine 0.1 mg every 12 hours, losartan 100 mg daily, and hydrochlorothiazide. IV hydralazine as needed for blood pressure control. Cardiac diet. (7) Elevated troponin Is this a current diagnosis for this admission?: Yes Plan: On admission patient's troponin was found to be 0.041, peaked at 0.191, down to 0.148 and no longer following. Patient is chest pain-free. EKG showed subtle changes; discussed with Dr. Calix. EKG now demonstrating LVH with strain. Dr. Hines advises that the elevated troponin is likely secondary to demand mismatch ischemia; recommends optimization of respiratory status. Continue daily aspirin and statin therapy. Continue cardiac diet. Management of hypertension as above. Recommend outpatient follow-up with cardiology and stress testing once acute COPD exacerbation is resolved. - Time Time Spent with patient: 25-34 minutes Medications reviewed and adjusted accordingly: Yes Anticipated discharge: Home Within: within 24 hours
[2018-11-01 16:00] LABS: ANION GAP 12 (5-19); BLOOD UREA NITROGEN 68 mg/dL (7-20); CALCIUM 9.4 mg/dL (8.4-10.2); CARBON DIOXIDE 24 mmol/L (22-30); CHLORIDE 98 mmol/L (98-107); GLUCOSE 254 mg/dL (75-110); POTASSIUM 5.9 mmol/L (3.6-5.0); SODIUM 133.5 mmol/L (137-145)
[2018-11-01] MEDS ORDERED: PATIROMER 8.4 GM SUSP PACKET PO SCH (17:00)
[2018-11-01] MEDS ORDERED: TIOTROPIUM BROMIDE DPI 5 CAP/KIT (18 MCG/CAP) IH SCH (18:00)
[2018-11-01] MEDS ORDERED: FLUTICASONE/VILANTEROL 200-25 MCG/DOSE IH SCH (18:00)
[2018-11-01] MEDS ORDERED: ALBUTEROL SULFATE 0.083% NEB 2.5 MG/3 ML AMPUL NEB PRN (20:45)
[2018-11-02] MEDS: IPRATROPIUM BROMIDE 0.02% NEB 0.5 MG/2.5 ML AMPUL NEB SCH ×3 (02:00→14:21)
[2018-11-02] MEDS: LEVALBUTEROL HCL NEB 1.25 MG/3 ML AMPUL NEB SCH ×3 (02:00→14:21)
[2018-11-02] MEDS: HYDRALAZINE HCL INJ/PF 20 MG/1 ML SDV IV PRN ×2 (03:58→07:40)
[2018-11-02] MEDS: PANTOPRAZOLE SODIUM 40 MG TABLET.DR PO SCH (05:19)
[2018-11-02] MEDS: HEPARIN SOD (PORCINE) 5,000 UNIT/ML 1 ML SYRINGE SUBCUT SCH ×2 (05:19→13:32)
[2018-11-02 06:52] LABS: HEMATOCRIT 34.9 % (37.9-51.0); HEMOGLOBIN 11.2 g/dL (13.5-17.0); MEAN CORPUSCULAR HEMOGLOBIN 27.3 pg (27.0-33.4); MEAN CORPUSCULAR HGB CONC 32.2 g/dL (32.0-36.0); MEAN CORPUSCULAR VOLUME 85 fl (80-97); PLATELET COUNT 175 10^3/uL (150-450); RED BLOOD COUNT 4.11 10^6/uL (4.35-5.55); RED CELL DISTRIBUTION WIDTH 15.2 % (11.5-14.0); WHITE BLOOD COUNT 12.7 10^3/uL (4.0-10.5)
[2018-11-02 07:26] LABS: ANION GAP 11 (5-19); BLOOD UREA NITROGEN 78 mg/dL (7-20); CALCIUM 9.3 mg/dL (8.4-10.2); CARBON DIOXIDE 23 mmol/L (22-30); CHLORIDE 99 mmol/L (98-107); GLUCOSE 228 mg/dL (75-110); POTASSIUM 5.7 mmol/L (3.6-5.0); SODIUM 132.5 mmol/L (137-145)
[2018-11-02 07:34] LABS: ABSOLUTE LYMPHOCYTES# (MANUAL) 0.4 10^3/uL (0.5-4.7); ABSOLUTE MONOCYTES # (MANUAL) 0.3 10^3/uL (0.1-1.4); ABSOLUTE NEUTROPHILS# (MANUAL) 12.1 10^3/uL (1.7-8.2); BASOPHILS % (MANUAL) 0 % (0-2); EOSINOPHILS % (MANUAL) 0 % (0-6); LYMPHOCYTES % (MANUAL) 3 % (13-45); MONOCYTES % (MANUAL) 2 % (3-13); SEGMENTED NEUTROPHILS % (MAN) 95 % (42-78); TOTAL CELLS COUNTED 100
[2018-11-02 07:35] LABS: ANISOCYTOSIS SLIGHT; BURR CELLS SLIGHT; OVALOCYTES SLIGHT; PLATELET COMMENT ADEQUATE; POIKILOCYTOSIS SLIGHT
[2018-11-02] MEDS: HYDROCHLOROTHIAZIDE 12.5 MG TABLET PO SCH (07:38)
[2018-11-02] MEDS: INSULIN REG, HUMAN 100 UNIT/ML 3 ML VIAL (PYX) SUBCUT SCH ×3 (07:40→17:11)
[2018-11-02] MEDS ORDERED: INSULIN GLARGINE,HUM.REC.ANLOG 1,000 UNIT/10 ML VIAL SUBCUT SCH (10:00)
[2018-11-02] MEDS ORDERED: METOPROLOL SUCCINATE 50 MG TAB.SR.24H PO SCH (10:00)
[2018-11-02] MEDS ORDERED: PREDNISONE 20 MG TABLET PO SCH (10:00)
[2018-11-02] MEDS ORDERED: AMLODIPINE BESYLATE 5 MG TABLET PO SCH (10:00)
[2018-11-02] MEDS: DOCUSATE SODIUM 100 MG CAPSULE PO SCH (10:01)
[2018-11-02] MEDS: GUAIFENESIN 600 MG TABLET.SA PO SCH (10:01)
[2018-11-02] MEDS: LOSARTAN POTASSIUM 50 MG TABLET PO SCH (10:01)
[2018-11-02] MEDS: ASPIRIN 81 MG TABLET, ENT COATED PO SCH (10:01)
[2018-11-02] MEDS: CLONIDINE HCL 0.1 MG TABLET PO SCH (10:01)
[2018-11-02 14:48] VITALS: BP 130/60
--- NOTE | 2018-11-04 08:01 | CONSULTATION REPORT E ---
Consultation Report NAME: ESPERANZA MEANS : 1935 AGE: 83Y DATE: 11/01/2018 326 A TO: CALE JEONG M.D. FROM: FABRICIO FRANCIS M.D. 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 Claims that he was hospitalized at [facility] several times in the past. Had a CT scan done last year in January, and he was not aware about any concerns on the CT scan. Currently, he is feeling a lot better. Denies any fever or chills, increase in cough, purulent sputum production, or hemoptysis. Currently, tolerating the nasal cannula oxygen therapy. The patient was on BiPAP on admission and was in acute respiratory failure. PAST MEDICAL HISTORY: 1. History of hypertension. 2. History of bronchitis. 3. COPD/ emphysema. 4. Respiratory failure. 5. Chronic hypoxia. 6. History of diabetes type 2. 7. Chronic kidney disease. PAST SURGICAL HISTORY: None. SOCIAL HISTORY: Lives with spouse or significant other. A former smoker. Denies alcohol abuse, illicit drug use. CODE STATUS: Full code. FAMILY HISTORY: Coronary artery disease, diabetes, hypertension. ALLERGIES: None. REVIEW OF SYSTEMS: Constitutional: No fever or chills on admission. Eyes: Denies any eye pain or visual disturbances. Ears: No hearing changes or ear pain or ear discharge. Nose, Mouth, and Throat: No mouth sores or mouth pain. Cardiovascular: Denies any exertional dyspnea, edema of lower extremities, and chronic orthopnea. Respiration: Complained about severe dyspnea on admission requiring BiPAP therapy, but denies any purulent sputum production or hemoptysis or chest pain or chest tightness. GI: No nausea, vomiting, diarrhea. : No dysuria, hematuria or flank pain EXTREMITIES: No joint swelling or cellulitis. PHYSICAL EXAMINATION: GENERAL: The patient is awake, alert, coherent, oriented x3. VITAL SIGNS: Temperature of 97.3, heart rate 67, blood pressure is 164/65, respirations 19, saturation is 100% on 2.5 L nasal cannula. EYES: No jaundice or pallor. EARS, NOSE, AND THROAT: No ear drainage. No nasal drainage. CHEST AND LUNGS: No wheezing, no rhonchi, no coarse crackles. CARDIOVASCULAR: S1, S2 distant. Normal rate and rhythm. ABDOMEN: Flabby with positive bowel sounds. Soft, nondistended, nontender. EXTREMITIES: No joint swelling or cellulitis. LABORATORY DATA: CBC done today showed white count 13.8, hemoglobin 11.4, hematocrit 35.3, platelet count is 167,000. No ABG today, but ABG 2 days ago showed pH of 7.30, pCO2 0.8, pO2 is 169, and oxygen ABG saturation 99. Chemistries done today showed sodium is 133, potassium is 5.9 down from 6.6 on admission, chloride is 98, CO2 is 24, BUN is 68, creatinine is 2.21, glucose is 254, calcium is 9.4. ASSESSMENT: 1. Chronic obstructive pulmonary disease (COPD), currently stable and not in acute exacerbation. 2. Acute respiratory failure, currently on BiPAP therapy, appears to be improved. PLAN/RECOMMENDATION: 1. I will do spirometry pre and post bronchodilator tomorrow. 2. May send the patient home on Breo 200 mcg inhaler once daily or Advair 500 mcg disk inhaler 1 puff twice a day. 3. Continue Spiriva inhaler 1 capsule daily. 4. May give the patient prednisone 40 mg for 5 days then stop. 5. The patient may need albuterol inhaler 2 puffs 4 times as needed if sent home and may need some nebulizer and medications every 6 hours as needed. 6. Recommend a pulmonary clinic followup in 2 weeks. Please instruct the patient to call my office for a followup in 2 weeks following hospital discharge. 7. The patient may go home on oral antibiotics for the next 7 days. 8. Home oxygen therapy 2 L via nasal cannula. The rest we will do as an outpatient if the patient is discharged tomorrow. DICTATING PHYSICIAN: CALE JEONG MD,ENRIQUE,MPH [id number] PHY#: [id number] ID: [id number] JOB#: [id number] ACCT: [id number] cc:CALE JEONG M.D. > MTDD
--- NOTE | 2018-11-04 20:51 | PDOC DISCHARGE SUMMARY ---
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 Chest x-ray demonstrated chronic interstitial changes, right basilar subpleural scarring and subsegmental atelectasis. No acute findings. Patient was admitted to [facility] on continuous cardiac telemetry and provided supplemental oxygen and BiPAP as needed to maintain saturations >89%. He was placed on scheduled and as needed nebulizer treatments. IV Solu-Medrol was initiated and he has been transitioned to p.o. prednisone to continue taper post discharge. He is discharged on Spiriva and Serevent; new medications for patient, he reports he was not previously on maintenance inhalers. He was placed on Mucinex twice daily. Pulmonary toilet was encouraged with frequent incentive spirometer and flutter valve use. At time of discharge, the patient is ambulatory in the hallway on his baseline oxygen requirement without increased work of breathing; patient reports he has returned to his baseline respiratory status. Patient is discharged to home with self care. He is provided prescriptions for amlodipine, HCTZ, metoprolol, Veltessa, Breo, Spiriva, Duonebs, Prednisone, and Mucinex. He is instructed to follow up with his PCP within 1 week. Follow up with cardiology, Dr. Hines, as scheduled. Follow up with Dr. Schmitz as scheduled. Establish with Dr. Ribeiro within 4-6 weeks. Return to the emergency department as needed for concerning symptoms. (2) Acute on chronic respiratory failure with hypoxia and hypercapnia Is this a current diagnosis for this admission?: Yes Summary: Secondary to COPD exacerbation; evaluation and management as above. (3) Chronic renal disease, stage III Is this a current diagnosis for this admission?: Yes Summary: Stable; unkown baseline. Creatinine 2.15-> 2.01-> 1.84-> 2.02 Avoid nephrotoxic medications as able. Recommend outpatient nephrology follow up. (4) Diabetes mellitus type 2 in obese Is this a current diagnosis for this admission?: Yes Summary: A1C 7.8% Recommend patient continue Consistent carb diet and outpatient medication regiment. (5) Hyperkalemia Is this a current diagnosis for this admission?: Yes Summary: Improved; unclear etiology. Patient was admitted with a potassium of 5.7-> 6.3-> 6.3-> 6.6-> 5.9->5.7 Medications were reviewed; no clear cause of hyperkalemia. He was provided Lactulose, albuterol and IV Lasix without respone. Started Veltassa with noted downward trend. He is discharged home with prescription to continue Veltassa. Recommend repeat chemistry at follow up appointment with PCP within 1 week. Consider nephrology referral for CKD 3 with hyperkalemia. (6) Hypertension Is this a current diagnosis for this admission?: Yes Summary: Acceptable blood pressures on home regiment. Continue amlodipine, clonidine 0.1 mg every 12 hours, losartan 100 mg daily, and hydrochlorothiazide. (7) Elevated troponin Is this a current diagnosis for this admission?: Yes Summary: On admission patient's troponin was found to be 0.041, peaked at 0.191, down to 0.148 and no longer following. Patient is chest pain-free. EKG showed subtle changes; discussed with Dr. Calix. EKG now demonstrating LVH with strain. Dr. Hines advises that the elevated troponin is likely secondary to demand mismatch ischemia; recommends optimization of respiratory status. Patient is to continue daily aspirin and statin therapy, cardiac diet, and management of hypertension as above. Recommend outpatient follow-up with cardiology to review indications for stress testing. Patient is provided an appointment with Dr. Hines on 11/15/18. - Additional Information Resuscitation Status: Full Code Discharge Diet: Cardiac, Diabetic Discharge Activity: Activity As Tolerated, Balance Activity w/Rest Prescriptions: Amlodipine Besylate [Norvasc 10 mg Tablet] 10 mg PO DAILY #30 tablet Fluticasone/Vilanterol [Breo 200-25 Mcg Ellipta 14 Dose/Dpi] 1 inh IH QPM #1 inhaler Guaifenesin [Mucinex Sr 600 mg Tablet.sa] 600 mg PO Q12 #28 tablet.sa Hydrochlorothiazide [Hydrodiuril 25 mg Tablet] 25 mg PO QAM #30 tablet Ipratropium/Albuterol Sulfate [Duoneb 3 ml Ampul] 3 ml NEB RTQ8 #90 vial.[facility] Metoprolol Succinate [Toprol Xl 50 mg Tab.sr] 50 mg PO DAILY #30 tab.sr.24h Patiromer Calcium Sorbitex [Veltassa 8.4 gm Susp Packet] 8.4 gm PO WSUPPER #14 packet Prednisone [Deltasone 20 mg Tablet] 60 mg PO DAILY #15 tablet Tiotropium [place] [Spiriva Handihaler 5 Cap/Kit (18 Mcg/Cap)] 1 cap QPM #1 kit Home Medications: Clonidine HCl [Catapres 0.1 mg Tablet] 0.1 mg PO Q12 10/31/18 Insulin Glargine,Hum.rec.anlog [Lantus Insulin 100 Unit/1 ml 10 ml] 40 unit VALERIO BCUT DAILY 10/31/18 Losartan Potassium [Cozaar 100 mg Tablet] 100 mg PO DAILY 10/31/18 Simvastatin [Zocor 20 mg Tablet] 20 mg PO QHS 10/31/18 Acetaminophen [Tylenol 325 mg Tablet] 650 mg PO Q4HP PRN tablet 11/02/18 Amlodipine Besylate [Norvasc 10 mg Tablet] 10 mg PO DAILY #30 tablet 11/02/18 Docusate Sodium [Colace 100 mg Capsule] 100 mg PO BID #0 capsule 11/02/18 Fluticasone/Vilanterol [Breo 200-25 Mcg Ellipta 14 Dose/Dpi] 1 inh IH QPM #1 inhaler 11/02/18 Guaifenesin [Mucinex Sr 600 mg Tablet.sa] 600 mg PO Q12 #28 tablet.sa 11/02/18 Hydrochlorothiazide [Hydrodiuril 25 mg Tablet] 25 mg PO QAM #30 tablet 11/02/18 Ipratropium/Albuterol Sulfate [Duoneb 3 ml Ampul] 3 ml [facility] RTQ8 #90 vial.neb 11/02/18 Metoprolol Succinate [Toprol Xl 50 mg Tab.sr] 50 mg PO DAILY #30 tab.sr.24h 11/02/18 Patiromer Calcium Sorbitex [Veltassa 8.4 gm Susp Packet] 8.4 gm PO WSUPPER #14 packet 11/02/18 Prednisone [Deltasone 20 mg Tablet] 60 mg PO DAILY #15 tablet 11/02/18 Tiotropium [place] [Spiriva Handihaler 5 Cap/Kit (18 Mcg/Cap)] 1 cap IH QPM #1 kit 11/02/18 History of Present Illness History of Present Illness: Per H&P by Dr. Caba: ESPERANZA MEANS is a 83 year old male who presented to the emergency room via EMS with an acute history of dyspnea. He admits developing increased dyspnea earlier in the day that progressively worsened to severe dyspnea at rest, causing him to summon EMS to bring him to the hospital. He denies additional symptoms associated with his increased dyspnea but admits to chronic orthopnea and sleeping in a recliner instead of the bed. He further denies any identified aggravating or ameliorating factors for his dyspnea but notes that it did not improve utilizing his continuous use home O2 at 2-1/2 L/min per nasal cannula and his home nebulizer therapy. He admits having prior similar episodes related to his COPD. During his transport via EMS he was placed on CPAP and given intravenous Solu-Medrol as well as 2 nebulizer treatments with DuoNeb, all of which improved his respiratory status prior to his arrival in the emergency room. In the ER he was found to be significantly hypoxic and having significant work of breathing resulting he is being placed on BiPAP. He was further noted to have chronic renal insufficiency and elevated potassium 5.7. He responded well to BiPAP therapy and will subsequently be admitted to the hospital for further evaluation and continued treatment. Physical Exam Vital Signs: Temp Pulse Resp BP Pulse Ox 97.4 F 63 18 130/60 H 97 11/02/18 14:46 11/02/18 14:46 11/02/18 14:46 11/02/18 14:46 11/02/18 14:46 Intake & Output 11/02/18 11/03/18 11/04/18 06:59 06:59 06:59 Intake Total 609 355 Output Total 1425 850 Balance -816 -495 Weight 81.9 kg General appearance: PRESENT: no acute distress, cooperative, hard of hearing, well-developed, well-nourished - overweight Head exam: PRESENT: atraumatic, normocephalic Eye exam: PRESENT: conjunctiva pink, EOMI, PERRLA. ABSENT: scleral icterus Mouth exam: PRESENT: moist, tongue midline Neck exam: ABSENT: carotid bruit, JVD, lymphadenopathy, thyromegaly Respiratory exam: PRESENT: prolonged expiratory phas, rhonchi, symmetrical, unlabored, other - baseline oxygen requirement. ABSENT: rales, wheezes Cardiovascular exam: PRESENT: RRR, +S1, +S2. ABSENT: diastolic murmur, rubs, systolic murmur Pulses: PRESENT: normal dorsalis pedis pul Vascular exam: PRESENT: normal capillary refill GI/Abdominal exam: PRESENT: normal bowel sounds, soft. ABSENT: distended, gua rding, mass, organolmegaly, rebound, tenderness Rectal exam: PRESENT: deferred Extremities exam: PRESENT: full ROM. ABSENT: calf tenderness, clubbing, pedal edema Musculoskeletal exam: PRESENT: ambulatory Neurological exam: PRESENT: alert, awake, oriented to person, oriented to place, oriented to time, oriented to situation, CN II-XII grossly intact. ABSENT: motor sensory deficit Psychiatric exam: PRESENT: appropriate affect, normal mood. ABSENT: homicidal ideation, suicidal ideation Skin exam: PRESENT: dry, intact, warm. ABSENT: cyanosis, rash Results Laboratory Results: 11/02/18 05:40 11/02/18 05:40 10/30/18 10/31/18 10/31/18 18:10 00:30 00:30 Creatine Kinase 156 CK-MB (CK-2) 4.50 Troponin I 0.041 0.133 NT-Pro-B Natriuret Pep 500 H 10/31/18 10/31/18 10/31/18 06:22 06:22 12:04 Creatine Kinase 175 H 208 H CK-MB (CK-2) 4.43 Troponin I 0.148 NT-Pro-B Natriuret Pep 10/31/18 10/31/18 11/01/18 12:04 17:45 10:22 Creatine Kinase CK-MB (CK-2) 5.13 H Troponin I 0.173 0.191 0.148 NT-Pro-B Natriuret Pep Impressions: Chest X-Ray 10/30/18 17:51 IMPRESSION: No consolidation or pneumothorax. Right basilar subpleural scarring -subsegmental atelectasis. Chronic interstitial changes and small calcified granulomas. No significant pleural effusion. Qualifiers - * PATIENT BEING DISCHARGED WITH ANY OF THE FOLLOWING DIAGNOSIS: No Acute Heart Failure Is this a Heart Failure Patient?: No Plan Discharge Plan: Discharge to home with self care; patient declines home health services. Follow up with primary care provider within 1 week. Follow up with cardiology, Dr. Hines, for stress testing as scheduled on 11/15/18. Follow up with Dr. Schmitz as scheduled on 11/29/18. Follow up with nephrology, Dr. Ribeiro in 6-8 weeks for routine monitoring of chronic kidney disease. Take medications as prescribed. STOP smoking. Return to the emergency department immediately for concerning symptoms. Time Spent: Greater than 30 Minutes
== END 2018-11-02 18:50 | disposition home or self-care (01) | DRG 190 ==
LOC: ER 17:49 → EH 20:15 → 3S 10-31 01:49
PROVIDERS: ADMIT Emergency Medicine; ATTEND Emergency Medicine
DX: J43.9 Emphysema, unspecified (principal); J96.22 Acute and chronic respiratory failure with hypercapnia; J96.21 Acute and chronic respiratory failure with hypoxia; N18.4 Chronic kidney disease, stage 4 (severe); E11.22 Type 2 diabetes mellitus with diabetic chronic kidney disease; E66.9 Obesity, unspecified; E87.5 Hyperkalemia; I12.9 Hypertensive chronic kidney disease with stage 1 through stage 4 chronic kidney disease, or unspecified chronic kidney disease; F10.20 Alcohol dependence, uncomplicated; Z99.81 Dependence on supplemental oxygen; Z79.899 Other long term (current) drug therapy; Z87.891 Personal history of nicotine dependence; Z83.3 Family history of diabetes mellitus; Z82.49 Family history of ischemic heart disease and other diseases of the circulatory system
CPT/HCPCS: 36415; 71045; 80048; 80053; 80061; 81001; 82550; 82553; 82803; 82962; 83036; 83605; 83735; 83880; 84439; 84443; 84481; 84484; 85025; 87040; 93005; 93010; 94060; 94660; 94667; 94668; 94799; 96361; 96374; 99291; J0360; J0610; J1644; J1650; J1815; J1940; J2060; J2920; J3475; J3490; J7512

== ENCOUNTER 2019-01-10 21:55 | Inpatient (IN) | payer MEDICARE ==
[2019-01-10] MEDS ORDERED: MIDAZOLAM HCL 50 MG/100 ML RTUINJ IV PRN (22:00)
[2019-01-10 22:21] LABS: ABSOLUTE LYMPHOCYTES (AUTO) 0.7 10^3/uL (0.5-4.7); ABSOLUTE MONOCYTES (AUTO) 0.8 10^3/uL (0.1-1.4); BASOPHILS % (AUTO) 0.1 % (0-2); EOSINOPHILS % (AUTO) 0.1 % (0-6); HEMATOCRIT 30.8 % (37.9-51.0); HEMOGLOBIN 9.8 g/dL (13.5-17.0); LYMPHOCYTES % (AUTO) 8.2 % (13-45); MEAN CORPUSCULAR HEMOGLOBIN 27.5 pg (27.0-33.4); MEAN CORPUSCULAR VOLUME 86 fl (80-97); MONOCYTES % (AUTO) 9.1 % (3-13); PLATELET COUNT 297 10^3/uL (150-450); RED BLOOD COUNT 3.58 10^6/uL (4.35-5.55); RED CELL DISTRIBUTION WIDTH 15.5 % (11.5-14.0); SEGMENTED NEUTROPHILS % (AUTO) 82.5 % (42-78); TOTAL CELLS COUNTED % (AUTO) 100 %; WHITE BLOOD COUNT 8.5 10^3/uL (4.0-10.5)
[2019-01-10 22:24] LABS: VENOUS BLOOD BASE EXCESS -3.1 mmol/L; VENOUS BLOOD HCO3 27.8 mmol/L (20-32)
[2019-01-10 22:27] LABS: INTERNATIONAL RATION (INR) 1.45; PROTHROMBIN TIME 17.7 SEC (11.4-15.4)
[2019-01-10 22:30] LABS: VENOUS BLOOD PH 7.12 (7.30-7.42)
[2019-01-10 22:31] LABS: VENOUS BLOOD PCO2 88.1 mmHg (35-63)
--- NOTE | 2019-01-10 22:40 | RADIOLOGY REPORT (SQ) ---
EXAM DESCRIPTION: XR CHEST 1 VIEW COMPLETED DATE/TME: 01/10/2019 21:56 CLINICAL HISTORY: 83 years, Male, post intubation COMPARISON: None. NUMBER OF VIEWS: TECHNIQUE: LIMITATIONS: None. FINDINGS: The side-port of the nasogastric tube is in the region of the gastroesophageal junction. The tip of the endotracheal tube is 4-5 cm above the leida. There is possible mild pulmonary vascular congestion. The heart is normal in size. There is probable scarring in the region of the right costophrenic angle. There is possible emphysema. IMPRESSION: The side-port of the NG tube is in the region of the gastroesophageal junction. This tube should be advanced at least 8-10 cm. The tip of the ET tube is 4-5 cm above the leida. Possible mild pulmonary vascular congestion. Possible emphysema. copyright 2010 [employer]- All Rights Reserved
[2019-01-10 22:43] LABS: ALANINE AMINOTRANSFERASE 26 U/L (21-72); ALBUMIN 2.9 g/dL (3.5-5.0); ALKALINE PHOSPHATASE 100 U/L (38-126); ANION GAP 11 (5-19); ASPARTATE AMINO TRANSFERASE 23 U/L (17-59); BILIRUBIN,DIRECT 0.4 mg/dL (0.0-0.4); BILIRUBIN,TOTAL 0.4 mg/dL (0.2-1.3); BLOOD UREA NITROGEN 56 mg/dL (7-20); CALCIUM 8.6 mg/dL (8.4-10.2); CARBON DIOXIDE 27 mmol/L (22-30); CHLORIDE 99 mmol/L (98-107); CREATINE KINASE 116 U/L (55-170); GLUCOSE 273 mg/dL (75-110); POTASSIUM 5.9 mmol/L (3.6-5.0); SODIUM 136.7 mmol/L (137-145); TOTAL PROTEIN 5.6 g/dL (6.3-8.2)
[2019-01-10 22:53] LABS: CREATINE KINASE MB 2.6 ng/mL (<4.55)
[2019-01-10 22:58] LABS: TROPONIN I 0.052 ng/mL
[2019-01-10] MEDS ORDERED: DEXTROSE 50%-WATER 25 GM/50 ML DISP.SYRIN IV ONE (23:03)
[2019-01-10] MEDS ORDERED: INSULIN REG, HUMAN 100 UNIT/ML 3 ML VIAL (PYX) IV ONE (23:04)
[2019-01-10] MEDS ORDERED: SODIUM POLYSTYRENE SULFONATE 15 GM/60 ML NG ONE (23:04)
[2019-01-11 00:05] LABS: APPEARANCE,URINE SLIGHTLY-CLOUDY; BILIRUBIN,URINE NEGATIVE (NEGATIVE); COLOR,URINE YELLOW; GLUCOSE, URINE >=500 mg/dL (NEGATIVE); KETONES,URINE NEGATIVE (NEGATIVE); LEUKOCYTE ESTERASE,URINE NEGATIVE (NEGATIVE); NITRITE,URINE NEGATIVE (NEGATIVE); PROTEIN,URINE >=500 mg/dL (NEGATIVE); URINE SPECIFIC GRAVITY 1.013; UROBILINOGEN,URINE NEGATIVE mg/dL (<2.0)
--- NOTE | 2019-01-11 00:06 | ER Document Report ---
ED General - General Stated Complaint: UNRESPONSIVE Time Seen by Provider: 01/10/19 21:59 TRAVEL OUTSIDE OF THE [place] IN LAST 30 DAYS: No - HPI Notes: Patient is an 83-year-old gentleman brought in for evaluation by EMS. Jessica garcia did obtain a history from the patient's . Evidently he has been short of breath, intermittently tripod position, over the last 3 days. Earlier today he refused transport to the hospital. He told his he was feeling better. She went back into the room and found him slumped over, unresponsive. She called EMS at that time. The patient had not been complaining of any pain to her. She was unaware of any fevers. - Related Data Allergies/Adverse Reactions: No Known Allergies Allergy (Unverified 10/30/18 18:35) Past Medical History - General Information source: Relative, Emergency Med Personnel - Social History Smoking Status: Former Smoker Family History: CAD, DM, Hypertension. denies: Malignancy - Past Medical History Cardiac Medical History: Reports: Hx Hypertension Denies: Hx Atrial Fibrillation, Hx Coronary Artery Disease, Hx DVT, Hx Heart Attack, Hx Hypercholesterolemia, Hx Pulmonary Embolism Pulmonary Medical History: Reports: Hx Bronchitis, Hx COPD - He has been told he has end-stage COPD, Hx Pneumonia, Hx Respiratory Failure Denies: Hx Asthma Neurological Medical History: Denies: Hx Seizures Endocrine Medical History: Reports: Hx Diabetes Mellitus Type 2. Denies: Hx Diabetes Mellitus Type 1, Hx Hyperthyroidism, Hx Hypothyroidism Renal/ Medical History: Denies: Hx Peritoneal Dialysis GI Medical History: Denies: Hx Cirrhosis, Hx Hepatitis Musculoskeletal Medical History: Denies Hx Arthritis, Denies Hx Fibromyalgia Skin Medical History: Denies Hx Eczema, Denies Hx Psoriasis Infectious Medical History: Denies: Hx Hepatitis Review of Systems - Review of Systems -: Yes ROS unobtainable due to patient's medical condition Physical Exam - Vital signs Vitals: Pulse Ox 98 01/10/19 21:55 - Notes Notes: This is an 83-year-old male in no acute distress. He is sedated, ET tube in place, large amount of mucus trailing from the nose and mouth. Head is normocephalic and atraumatic. Pupils are equal round, reactive to light. Oral mucosa is moist. Heart is regular rate and rhythm, lungs show diminished breath sounds with expiratory wheezes and occasional rhonchi. Abdomen is obese, appears nontender. Extremities show 2+ pitting edema bilaterally. Skin is warm and dry. Course - Re-evaluation Re-evalutation: 01/11/19 00:14 Presents to the emergency department for evaluation. He was already intubated prior to arrival. Laboratory investigations and imaging were obtained. Imaging revealed an appropriately placed ET tube, no clear consolidation. He does have an OG in place, which is found to be high. Advancement was attempted by nursing it was unsuccessful. On section, however, we are obtaining gastric contents. At this point no further intervention was performed. Patient was found to be hyperkalemic. He had already received 2 [id number] DuoNeb's in route. He was given insulin, dextrose, Kayexalate. Patient's ABG revealed significant hypercapnia. His respiratory rate was increased. His blood pressure did drop here. I did order a 500 cc bolus and decrease his PEEP slightly. Patient remains stable, awaiting admission. 01/11/19 00:[address] Caba who happily excepted the patient. - Vital Signs Vital signs: Temp Pulse Resp BP Pulse Ox 98 01/10/19 21:55 - Laboratory Result Diagrams: 01/10/19 21:55 01/10/19 21:55 Laboratory results interpreted by me: 01/10/19 01/10/19 01/10/19 21:55 21:55 21:55 RBC 3.58 L Hgb 9.8 L Hct 30.8 L RDW 15.5 H Seg Neutrophils % 82.5 H Lymphocytes % 8.2 L PT 17.7 H VBG pH VBG pCO2 Sodium 136.7 L Potassium 5.9 H BUN 56 H Creatinine 2.47 H Est GFR ( Amer) 30 L Est GFR (Non-Af Amer) 25 L Glucose 273 H Total Protein 5.6 L Albumin 2.9 L Urine Protein Urine Glucose (UA) Urine Blood 01/10/19 01/10/19 21:55 23:25 RBC Hgb Hct RDW Seg Neutrophils % Lymphocytes % PT VBG pH 7.12 L* VBG pCO2 88.1 H* Sodium Potassium BUN Creatinine Est GFR ( Amer) Est GFR (Non-Af Amer) Glucose Total Protein Albumin Urine Protein >=500 H Urine Glucose (UA) >=500 H Urine Blood MODERATE H - Diagnostic Test Radiology reviewed: Reports reviewed Radiology results interpreted by me: 01/11/19 00:14 Chest X-Ray 01/10/19 21:56 IMPRESSION: The side-port of the NG tube is in the region of the gastroesophageal junction. This tube should be advanced at least 8-10 cm. The tip of the ET tube is 4-5 cm above the leida. Possible mild pulmonary vascular congestion. Possible emphysema. copyright 2010 [employer]- All Rights Reserved - EKG Interpretation by Me Additional EKG results interpreted by me: 01/11/19 00:16 Sinus mechanism with a rate of 91 bpm. Normal axis, IVCD. Lateral and inferior ST changes, concerning for potential ischemia, no significant change in compared to prior study of October 30, 2018. Critical Care Note - Critical Care Note Total time excluding time spent on procedures (mins): 40 Discharge - Discharge Clinical Impression: Acute exacerbation of chronic obstructive pulmonary disease (COPD), Hyperkalemia Acute and chronic respiratory failure Qualifiers: Respiratory failure complication: hypercapnia Qualified Code(s): J96.22 - Acute and chronic respiratory failure with hypercapnia Condition: Fair Disposition: ADMITTED INPATIENT Admitting Provider: Rosales (Hospitalist) Unit Admitted: ICU
[2019-01-11] MEDS ORDERED: NORMAL SALINE 500 ML IV ONE (00:13)
[2019-01-11] MEDS ORDERED: MORPHINE SULFATE 10 MG/ML INJ IV PRN (00:57)
[2019-01-11] MEDS ORDERED: ACETAMINOPHEN 650 MG SUPP.RECT PR PRN (00:57)
[2019-01-11] MEDS ORDERED: METOPROLOL TARTRATE PF/INJ 5 MG/5 ML SDV IV PRN (00:57)
[2019-01-11] MEDS ORDERED: ACETAMINOPHEN 325 MG TABLET PO PRN (00:57)
[2019-01-11] MEDS ORDERED: CHLORPROMAZINE HCL INJ 25 MG/1 ML AMPULE IV PRN (00:57)
[2019-01-11] MEDS ORDERED: HYDRALAZINE HCL INJ/PF 20 MG/1 ML SDV IV PRN (00:57)
[2019-01-11] MEDS ORDERED: LEVALBUTEROL HCL NEB 0.63 MG/3 ML AMPUL NEB PRN (00:57)
[2019-01-11] MEDS ORDERED: DEXTROSE 50%-WATER 25 GM/50 ML DISP.SYRIN IV PRN ×2 (01:09)
[2019-01-11] MEDS ORDERED: MAG HYDROX/AL HYDROX/SIMETH SUSP 30 ML UDCUP PO PRN (01:09)
[2019-01-11] MEDS ORDERED: GLUCAGON,HUMAN RECOMB 1 MG INJ IM PRN (01:09)
[2019-01-11] MEDS ORDERED: ONDANSETRON HCL INJ/PF 4 MG/2 ML SDV IV PRN (01:09)
[2019-01-11] MEDS ORDERED: DEXTROSE 40% GEL 15 GM TUBE PO PRN ×2 (01:09)
[2019-01-11] MEDS ORDERED: METHYLPREDNISOLONE INJ 125 MG/2 ML SDV IV ONE (02:00)
[2019-01-11] MEDS: NORMAL SALINE 1000 ML 1,000 ML IV PRN ×3 (02:44→20:51)
[2019-01-11] MEDS: INSULIN REG, HUMAN 100 UNIT/ML 3 ML VIAL (PYX) SUBCUT SCH ×4 (02:44→17:57)
[2019-01-11] MEDS: PROPOFOL 1,000 MG/100 ML INFUS..BTL IV PRN ×2 (02:45→17:34)
[2019-01-11 02:58] LABS: ARTERIAL BLOOD BASE EXCESS 0 mmol/L; ARTERIAL BLOOD HCO3 26.6 mmol/L (20-24); ARTERIAL BLOOD O2 SATURATION 91.8 % (94-98); ARTERIAL BLOOD PH 7.32 (7.35-7.45); ARTERIAL BLOOD PO2 67.7 mmHg (80-100); ARTERIAL BLOOD TOTAL CO2 28.3 mmol/L (23-27)
[2019-01-11 02:59] LABS: ARTERIAL BLOOD FIO2 30%
--- NOTE | 2019-01-11 03:06 | PDOC H&P ---
History of Present Illness Admission Date/PCP: 01/11/2019 00:33 No local PCP Patient complains of: Dyspnea History of Present Illness: ESPEARNZA MEANS is a 83 year old male who presented to the emergency room via EMS due to respiratory failure. Patient is sedated and intubated, thus unable to provide any medical information at this time. His did speak to the emergency room doctor earlier and her information has been conveyed to me. Patient has been short of breath for 3 days and though he was becoming progressively worse and his dyspnea was severe he refused to go to the hospital. Eventually he collapsed at home on the late evening of 01/10/2019. He was unresponsive and EMS was called by his . He was intubated in the field and brought to the emergency room for further treatment. His states that her had only expressed the complaint of being short of breath and had she was not aware of any other complaints or symptoms. Her has a long history of COPD and numerous similar though not quite so severe episodes. In the emergency room he was found to be hypoxic and hypercapnic with a severe respiratory acidosis. He was placed on mechanical ventilation and subsequently admitted to the hospital for further evaluation and treatment. Past Medical History Past Medical History: Obtained primarily from prior records. 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, Pneumonia, Respiratory Failure Denies: Asthma EENT Medical History: Denies: Cataracts, Ears - Hearing aids Neurological Medical History: Denies: Multiple Sclerosis, Seizures Endocrine Medical History: Reports: Diabetes Mellitus Type 2 Denies: Diabetes Mellitus Type 1, Hyperthyroidism, Hypothyroidism Renal/ Medical History: Reports: Chronic Kidney Disease Denies: Nephrolithiasis Malignancy Medical History: Reports: None GI Medical History: Denies: Cirrhosis, Hepatitis Musculoskeltal Medical History: Denies: Arthritis, Fibromyalgia Skin Medical History: Denies: Eczema, Psoriasis Psychiatric Medical History: Reports: Tobacco Dependency Denies: Alcohol Dependency, Substance Abuse Traumatic Medical History: Reports: None Hematology: Denies: Anemia, Bleeding Tendencies Infectious Medical History: Reports: None Past Surgical History Past Surgical History: Obtained from prior records. Past Surgical History: Reports: None Social History Information Source: [facility] Records Lives with: Spouse/Significant other Smoking Status: Former Smoker Frequency of Alcohol Use: None Hx Recreational Drug Use: No Drugs: None Hx Prescription Drug Abuse: No - Advance Directive Resuscitation Status: Full Code Family History Family History: CAD, DM, Hypertension. denies: Malignancy Family History: Obtained from prior records. Parental Family History Reviewed: Yes Children Family History Reviewed: No Sibling(s) Family History Reviewed.: Yes Medication/Allergy Home Medications: Clonidine HCl [Catapres 0.1 mg Tablet] 0.1 mg PO Q12 10/31/18 Insulin Glargine,Hum.rec.anlog [Lantus Insulin 100 Unit/1 ml 10 ml] 40 unit SUBCUT DAILY 10/31/18 Losartan Potassium [Cozaar 100 mg Tablet] 100 mg PO DAILY 10/31/18 Simvastatin [Zocor 20 mg Tablet] 20 mg PO QHS 10/31/18 Acetaminophen [Tylenol 325 mg Tablet] 650 mg PO Q4HP PRN tablet 11/02/18 Amlodipine Besylate [Norvasc 10 mg Tablet] 10 mg PO DAILY #30 tablet 11/02/18 Docusate Sodium [Colace 100 mg Capsule] 100 mg PO BID #0 capsule 11/02/18 Fluticasone/Vilanterol [Breo 200-25 Mcg Ellipta 14 Dose/Dpi] 1 inh IH QPM #1 inhaler 11/02/18 Guaifenesin [Mucinex Sr 600 mg Tablet.sa] 600 mg PO Q12 #28 tablet.sa 11/02/18 Hydrochlorothiazide [Hydrodiuril 25 mg Tablet] 25 mg PO QAM #30 tablet 11/02/18 Ipratropium/Albuterol Sulfate [Duoneb 3 ml Ampul] 3 ml NEB RTQ8 #90 vial.neb 01/14 Metoprolol Succinate [Toprol Xl 50 mg Tab.sr] 50 mg PO DAILY #30 tab.sr.24h 11/02/18 Patiromer Calcium Sorbitex [Veltassa 8.4 gm Susp Packet] 8.4 gm PO WSUPPER #14 packet 11/02/18 Prednisone [Deltasone 20 mg Tablet] 60 mg PO DAILY #15 tablet 11/02/18 Tiotropium Byers [Spiriva Handihaler 5 Cap/Kit (18 Mcg/Cap)] 1 cap IH QPM #1 kit 11/02/18 Allergies/Adverse Reactions: No Known Allergies Allergy (Unverified 10/30/18 18:35) Review of Systems ROS unobtainable: Due to endotracheal tube Physical Exam Vital Signs: Temp Pulse Resp BP Pulse Ox 98 01/10/19 21:55 General appearance: PRESENT: no acute distress, obese, other - Sedated intubated and on mechanical ventilation. Head exam: PRESENT: atraumatic, normocephalic Eye exam: PRESENT: conjunctiva pink. ABSENT: conjunctival injection, scleral icterus Ear exam: PRESENT: normal external ear exam. ABSENT: bleeding, drainage Mouth exam: PRESENT: dry mucosa, neck supple, tongue midline Neck exam: ABSENT: thyromegaly, tracheal deviation Respiratory exam: PRESENT: decreased breath sounds - Moderately decreased breath sounds throughout all yu, prolonged expiratory phas - Prolonged expiratory phase in all yu, rales - Fine bibasilar rales noted, symmetrical, wheezes - Expiratory wheezes in all yu, other - Intubated and on mechanical ventilation Cardiovascular exam: PRESENT: gallop - Faint S4 gallop noted, RRR. ABSENT: clicks, rubs Pulses: PRESENT: normal radial pulses, normal dorsalis pedis pul Vascular exam: PRESENT: normal capillary refill. ABSENT: pallor GI/Abdominal exam: PRESENT: normal bowel sounds, soft Rectal exam: PRESENT: deferred Extremities exam: PRESENT: pedal edema - Bilateral, +2 edema - 2+ pretibial pitting edema bilaterally Musculoskeletal exam: ABSENT: deformity, dislocation Neurological exam: PRESENT: altered - Sedated, intubated and on mechanical ventilation, reflexes normal Psychiatric exam: PRESENT: other - Sedated intubated on mechanical ventilation precluding further evaluation Skin exam: PRESENT: dry, intact, warm. ABSENT: jaundice, rash, urticaria Results Laboratory Results: 01/10/19 21:55 01/10/19 21:55 01/10/19 01/10/19 01/10/19 21:55 21:55 21:55 WBC 8.5 RBC 3.58 L Hgb 9.8 L Hct 30.8 L MCV 86 MCH 27.5 MCHC 32.0 RDW 15.5 H Plt Count 297 Seg Neutrophils % 82.5 H Lymphocytes % 8.2 L Monocytes % 9.1 Eosinophils % 0.1 Basophils % 0.1 Absolute Neutrophils 7.0 Absolute Lymphocytes 0.7 Absolute Monocytes 0.8 Absolute Eosinophils 0.0 Absolute Basophils 0.0 VBG pH VBG pCO2 VBG HCO3 VBG Base Excess Sodium 136.7 L Potassium 5.9 H Chloride 99 Carbon Dioxide 27 Anion Gap 11 BUN 56 H Creatinine 2.47 H Est GFR ( Amer) 30 L Est GFR (Non-Af Amer) 25 L Glucose 273 H Lactic Acid 1.1 Calcium 8.6 Total Bilirubin 0.4 AST 23 ALT 26 Alkaline Phosphatase 100 Total Protein 5.6 L Albumin 2.9 L Urine Color Urine Appearance Urine pH Ur Specific [place] Urine Protein Urine Glucose (UA) Urine Ketones Urine Blood Urine Nitrite Ur Leukocyte Esterase Urine WBC (Auto) Urine RBC (Auto) 01/10/19 01/10/19 21:55 23:25 WBC RBC Hgb Hct MCV MCH MCHC RDW Plt Count Seg Neutrophils % Lymphocytes % Monocytes % Eosinophils % Basophils % Absolute Neutrophils Absolute Lymphocytes Absolute Monocytes Absolute Eosinophils Absolute Basophils VBG pH 7.12 L* VBG pCO2 88.1 H* VBG HCO3 27.8 VBG Base Excess -3.1 Sodium Potassium Chloride Carbon Dioxide Anion Gap BUN Creatinine Est GFR ( Amer) Est GFR (Non-Af Amer) Glucose Lactic Acid Calcium Total Bilirubin AST ALT Alkaline Phosphatase Total Protein Albumin Urine Color YELLOW Urine Appearance SLIGHTLY-CLOUDY Urine pH 5.0 Ur Specific [place] 1.013 Urine Protein >=500 H Urine Glucose (UA) >=500 H Urine Ketones NEGATIVE Urine Blood MODERATE H Urine Nitrite NEGATIVE Ur Leukocyte Esterase NEGATIVE Urine WBC (Auto) 0 Urine RBC (Auto) 2 01/10/19 01/10/19 21:55 21:55 Creatine Kinase 116 CK-MB (CK-2) 2.60 Troponin I 0.052 Impressions: Chest X-Ray 01/10/19 21:56 IMPRESSION: The side-port of the NG tube is in the region of the gastroesophageal junction. This tube should be advanced at least 8-10 cm. The tip of the ET tube is 4-5 cm above the leida. Possible mild pulmonary vascular congestion. Possible emphysema. copyright 2010 [employer]- All Rights Reserved Assessment and Plan - Diagnosis (1) Acute exacerbation of chronic obstructive pulmonary disease (COPD) Is this a current diagnosis for this admission?: Yes Plan: Patient be treated with an aggressive pulmonary toilet utilizing nebulized Xopenex, Atrovent and Pulmicort. He will also receive intravenous Solu-Medrol. His respiratory failure will be treated as outlined below. (2) Acute on chronic respiratory failure with hypoxia and hypercapnia Is this a current diagnosis for this admission?: Yes Plan: Patient's respiratory failure to be managed with endotracheal intubation and ventilation. A pulmonary consultation with Dr. Isaac will be obtained. She will be monitored closely in the ICU with frequent blood gas determinations to evaluate his respiratory status. (3) Chronic renal disease, stage III Is this a current diagnosis for this admission?: Yes Plan: Patient's renal status will be monitored frequently throughout his hospital course with metabolic profiles and magnesium levels on a daily basis. Patient was noted to have some peripheral edema on exam and bibasilar rales were also noted. He will be observed for any progression of his edema. If this would result I would recommend mild diuresis. He will also be treated with 2 mg of morphine sulfate IV every 2 hours on a as needed basis for acute pulmonary edema (rales/crackles). (4) Diabetes mellitus type 2 in obese Is this a current diagnosis for this admission?: Yes Plan: Patient's diabetes will be managed throughout his initial hospital course by obtaining every 6 hours blood sugars and treating them with sliding scale insulin for hyperglycemia. Additionally a hypoglycemia protocol will be in place. Hemoglobin A1c will be obtained to evaluate the patient's prior therapy efficacy. (5) Hypertension Qualifiers: Hypertension type: essential hypertension Qualified Code(s): I10 - Ess ential (primary) hypertension Is this a current diagnosis for this admission?: Yes Plan: Patient's hypertension will be treated with intravenous metoprolol 5 mg every 4 hours and/or intravenous hydralazine 20 mg IV every 4 hours as needed systolic blood pressure greater than 160 and/or diastolic blood pressure greater than 100. - Time Time Spent with patient: 15-24 minutes Medications reviewed and adjusted accordingly: Yes Anticipated discharge: Home - Inpatient Certification Based on my medical assessment, after consideration of the patient's comorbidities, presenting symptoms, or acuity I expect that the services needed warrant INPATIENT care.: Yes I certify that my determination is in accordance with my understanding of Medicare's requirements for reasonable and necessary INPATIENT services [42 CFR 412.3e].: Yes Medical Necessity: Significant Comorbidiites Make Outpatient Treatment Too Risky, Need Close Monitoring Due to Risk of Patient Decompensation, Need For Continuous Telemetry Monitoring, Need for Nebulizer Therapy and Monitoring of Response, Need for Neurological Checks, Risk of Complication if Not Cared For in Hospital
[2019-01-11] MEDS: MIDAZOLAM HCL 50 MG/100 ML RTUINJ IV PRN ×2 (04:02→15:27)
[2019-01-11 04:27] LABS: CREATINE KINASE MB 2.98 ng/mL (<4.55)
[2019-01-11 04:30] LABS: TROPONIN I 0.144 ng/mL
[2019-01-11] MEDS: HEPARIN SOD (PORCINE) 5,000 UNIT/ML 1 ML SYRINGE SUBCUT SCH ×3 (06:43→21:01)
[2019-01-11 07:04] LABS: ARTERIAL BLOOD BASE EXCESS 0.8 mmol/L; ARTERIAL BLOOD H2CO3 1.16 mmol/L (1.05-1.35); ARTERIAL BLOOD O2 SATURATION 93.3 % (94-98); ARTERIAL BLOOD PCO2 38.6 mmHg (35-45); ARTERIAL BLOOD PH 7.43 (7.35-7.45); ARTERIAL BLOOD PO2 64.9 mmHg (80-100); ARTERIAL BLOOD TOTAL CO2 26.2 mmol/L (23-27)
[2019-01-11 07:09] LABS: ARTERIAL BLOOD FIO2 30%
--- NOTE | 2019-01-11 07:33 | RADIOLOGY REPORT (SQ) ---
EXAM DESCRIPTION: XR CHEST 1 VIEW COMPLETED DATE/TME: 01/11/2019 06:00 CLINICAL HISTORY: 83 years Male, On ventilator COMPARISON: One day prior. NUMBER OF VIEWS/TECHNIQUE: 1/AP FINDINGS: Moderate interstitial markings. Small right basilar opacity-effusion.Adequate appearing endotracheal tube. Adequate appearing enteric tube partially obscured. Normal cardiac silhouette size. No pneumothorax. Stable bony thorax. IMPRESSION: No significant change.
[2019-01-11] MEDS: BUDESONIDE NEB 0.5 MG/2 ML AMPUL NEB SCH ×2 (07:44→20:38)
[2019-01-11] MEDS: IPRATROPIUM BROMIDE 0.02% NEB 0.5 MG/2.5 ML AMPUL NEB SCH ×2 (07:44→16:15)
[2019-01-11] MEDS: LEVALBUTEROL HCL NEB 1.25 MG/3 ML AMPUL NEB SCH ×2 (07:44→16:15)
[2019-01-11] MEDS: PANTOPRAZOLE SODIUM 40 MG VIAL IV SCH ×2 (10:56→21:01)
[2019-01-11] MEDS: METHYLPREDNISOLONE INJ 40 MG/1 ML SDV IV SCH ×3 (10:56→20:51)
[2019-01-11 11:24] LABS: CREATINE KINASE MB 6.92 ng/mL (<4.55); TROPONIN I 0.183 ng/mL
[2019-01-11] MEDS ORDERED: NORMAL SALINE 1000 ML 1,000 ML with THIAMINE HCL 100 MG, MVI, ADULT NO.1 WITH VIT K 10 ... IV ONE ×4 (12:00)
[2019-01-11] MEDS ORDERED: FUROSEMIDE INJ/PF 20 MG/2 ML SDV IV ONE (14:08)
[2019-01-11] MEDS: ALBUMIN HUMAN 12.5 GM/50 ML RTUINJ IV SCH ×2 (15:13→15:23)
[2019-01-11] MEDS ORDERED: VANCOMYCIN HCL 0 MG in DEXTROSE 5%-WATER 250 ML IV NR (16:30)
[2019-01-11 16:47] LABS: ANION GAP 11 (5-19); BLOOD UREA NITROGEN 74 mg/dL (7-20); CALCIUM 8.3 mg/dL (8.4-10.2); CARBON DIOXIDE 24 mmol/L (22-30); CHLORIDE 104 mmol/L (98-107); GLUCOSE 274 mg/dL (75-110); SODIUM 138.6 mmol/L (137-145)
[2019-01-11 16:50] LABS: CREATINE KINASE MB 7.44 ng/mL (<4.55); TROPONIN I 0.159 ng/mL
[2019-01-11 17:02] LABS: POTASSIUM 4.5 mmol/L (3.6-5.0)
[2019-01-11] MEDS ORDERED: CEFTRIAXONE SODIUM 1,000 MG in DEXTROSE 5%-WATER 50 ML IV SCH (18:00)
--- NOTE | 2019-01-11 18:23 | EKG REPORT ---
SEVERITY:- ABNORMAL ECG - SINUS RHYTHM CONSIDER ANTEROSEPTAL INFARCT NONSPECIFIC T ABNORMALITIES, LATERAL LEADS : Confirmed by: Henry Langford MD 11-Jan-2019 18:23:36
--- NOTE | 2019-01-11 18:24 | EKG REPORT ---
SEVERITY:- ABNORMAL ECG - SINUS RHYTHM IVCD OLD ANTEROSEPTAL [place] : Confirmed by: Henry Langford MD 11-Jan-2019 18:24:41
[2019-01-11] MEDS ORDERED: VANCOMYCIN HCL 1,000 MG in DEXTROSE 5%-WATER 250 ML IV ONE ×2 (19:00→21:00)
[2019-01-12] MEDS: IPRATROPIUM BROMIDE 0.02% NEB 0.5 MG/2.5 ML AMPUL NEB SCH ×2 (00:31→08:40)
[2019-01-12] MEDS: LEVALBUTEROL HCL NEB 1.25 MG/3 ML AMPUL NEB SCH ×2 (00:31→08:40)
[2019-01-12] MEDS: PROPOFOL 1,000 MG/100 ML INFUS..BTL IV PRN (03:15)
[2019-01-12] MEDS: METHYLPREDNISOLONE INJ 40 MG/1 ML SDV IV SCH ×3 (03:16→15:39)
[2019-01-12 03:47] LABS: HEMATOCRIT 24.4 % (37.9-51.0); MEAN CORPUSCULAR HEMOGLOBIN 27.5 pg (27.0-33.4); MEAN CORPUSCULAR HGB CONC 32.7 g/dL (32.0-36.0); MEAN CORPUSCULAR VOLUME 84 fl (80-97); PLATELET COUNT 222 10^3/uL (150-450); RED CELL DISTRIBUTION WIDTH 16.3 % (11.5-14.0); WHITE BLOOD COUNT 7.8 10^3/uL (4.0-10.5)
[2019-01-12 04:08] LABS: ALANINE AMINOTRANSFERASE 28 U/L (21-72); ALBUMIN 2.7 g/dL (3.5-5.0); ALKALINE PHOSPHATASE 76 U/L (38-126); ANION GAP 11 (5-19); ASPARTATE AMINO TRANSFERASE 45 U/L (17-59); BILIRUBIN,DIRECT 0.3 mg/dL (0.0-0.4); BILIRUBIN,TOTAL 0.3 mg/dL (0.2-1.3); BLOOD UREA NITROGEN 87 mg/dL (7-20); CALCIUM 8.3 mg/dL (8.4-10.2); CARBON DIOXIDE 21 mmol/L (22-30); CHLORIDE 105 mmol/L (98-107); GLUCOSE 347 mg/dL (75-110); POTASSIUM 4.5 mmol/L (3.6-5.0); SODIUM 136.9 mmol/L (137-145); TOTAL PROTEIN 5.1 g/dL (6.3-8.2)
[2019-01-12 04:21] LABS: FREE T3 4.63 pg/mL (2.77-5.27); FREE T4 (FREE THYROXINE) 1.5 ng/dL (0.78-2.19)
[2019-01-12 05:12] LABS: THYROID STIMULATING HORMONE 2.47 uIU/mL (0.47-4.68)
[2019-01-12] MEDS: HEPARIN SOD (PORCINE) 5,000 UNIT/ML 1 ML SYRINGE SUBCUT SCH (05:12)
[2019-01-12] MEDS: INSULIN REG, HUMAN 100 UNIT/ML 3 ML VIAL (PYX) SUBCUT SCH ×2 (05:12)
[2019-01-12] MEDS: NORMAL SALINE 1000 ML 1,000 ML IV PRN (05:16)
[2019-01-12 05:52] LABS: ARTERIAL BLOOD BASE EXCESS -2.7 mmol/L; ARTERIAL BLOOD FIO2 30%; ARTERIAL BLOOD HCO3 21.8 mmol/L (20-24); ARTERIAL BLOOD O2 SATURATION 94.4 % (94-98); ARTERIAL BLOOD PCO2 36.4 mmHg (35-45); ARTERIAL BLOOD PO2 71.1 mmHg (80-100); ARTERIAL BLOOD TOTAL CO2 22.9 mmol/L (23-27)
--- NOTE | 2019-01-12 06:17 | PDOC PROGRESS REPORT ---
Subjective Progress Note for:: 01/11/19 Subjective:: The patient is intubated and sedated Reason For Visit: ACUTE AND CHRONIC RESPIRATORY FAILURE WITH HYPOXIA Physical Exam Vital Signs: Temp Pulse Resp BP Pulse Ox 97.9 F 76 20 130/70 H 94 01/11/19 12:01 01/11/19 12:00 01/11/19 12:01 01/11/19 12:01 01/11/19 12:05 Intake & Output 01/10/19 01/11/19 01/12/19 06:59 06:59 06:59 Intake Total 518 Output Total 225 44 Balance 293 -44 Weight 85.1 kg General appearance: PRESENT: no acute distress Head exam: PRESENT: atraumatic, normocephalic Ear exam: PRESENT: normal external ear exam Mouth exam: PRESENT: other - Endotracheal and nasogastric tubes in place Respiratory exam: PRESENT: rhonchi - Bilateral bases, symmetrical. ABSENT: rales, tachypnea, wheezes Cardiovascular exam: PRESENT: RRR, +S1, +S2 GI/Abdominal exam: PRESENT: distended, normal bowel sounds, soft. ABSENT: tenderness Rectal exam: PRESENT: deferred Gentrourinary exam: PRESENT: indwelling catheter Musculoskeletal exam: PRESENT: normal inspection Neurological exam: ABSENT: awake Psychiatric exam: ABSENT: agitated Focused psych exam: ABSENT: restlessness Skin exam: PRESENT: other - Interdigital toes Results Laboratory Results: 01/10/19 21:55 01/10/19 21:55 01/10/19 01/10/19 01/10/19 21:55 21:55 21:55 WBC 8.5 RBC 3.58 L Hgb 9.8 L Hct 30.8 L MCV 86 MCH 27.5 MCHC 32.0 RDW 15.5 H Plt Count 297 Seg Neutrophils % 82.5 H Lymphocytes % 8.2 L Monocytes % 9.1 Eosinophils % 0.1 Basophils % 0.1 Absolute Neutrophils 7.0 Absolute Lymphocytes 0.7 Absolute Monocytes 0.8 Absolute Eosinophils 0.0 Absolute Basophils 0.0 Carbonic Acid HCO3/H2CO3 Ratio ABG pH ABG pCO2 ABG pO2 ABG HCO3 ABG O2 Saturation ABG Base Excess VBG pH VBG pCO2 VBG HCO3 VBG Base Excess FiO2 Sodium 136.7 L Potassium 5.9 H Chloride 99 Carbon Dioxide 27 Anion Gap 11 BUN 56 H Creatinine 2.47 H Est GFR ( Amer) 30 L Est GFR (Non-Af Amer) 25 L Glucose 273 H Lactic Acid 1.1 Calcium 8.6 Magnesium Total Bilirubin 0.4 AST 23 ALT 26 Alkaline Phosphatase 100 Total Protein 5.6 L Albumin 2.9 L Triglycerides Urine Color Urine Appearance Urine pH Ur Specific [place] Urine Protein Urine Glucose (UA) Urine Ketones Urine Blood Urine Nitrite Ur Leukocyte Esterase Urine WBC (Auto) Urine RBC (Auto) 01/10/19 01/10/19 01/11/19 21:55 23:25 02:50 WBC RBC Hgb Hct MCV MCH MCHC RDW Plt Count Seg Neutrophils % Lymphocytes % Monocytes % Eosinophils % Basophils % Absolute Neutrophils Absolute Lymphocytes Absolute Monocytes Absolute Eosinophils Absolute Basophils Carbonic Acid 1.60 H HCO3/H2CO3 Ratio 16:1 ABG pH 7.32 L ABG pCO2 53.0 H ABG pO2 67.7 L ABG HCO3 26.6 H ABG O2 Saturation 91.8 L ABG Base Excess 0 VBG pH 7.12 L* VBG pCO2 88.1 H* VBG HCO3 27.8 VBG Base Excess -3.1 FiO2 30% Sodium Potassium Chloride Carbon Dioxide Anion Gap BUN Creatinine Est GFR ( Amer) Est GFR (Non-Af Amer) Glucose Lactic Acid Calcium Magnesium Total Bilirubin AST ALT Alkaline Phosphatase Total Protein Albumin Triglycerides Urine Color YELLOW Urine Appearance SLIGHTLY-CLOUDY Urine pH 5.0 Ur Specific [place] 1.013 Urine Protein >=500 H Urine Glucose (UA) >=500 H Urine Ketones NEGATIVE Urine Blood MODERATE H Urine Nitrite NEGATIVE Ur Leukocyte Esterase NEGATIVE Urine WBC (Auto) 0 Urine RBC (Auto) 2 01/11/19 01/11/19 01/11/19 03:47 06:28 10:35 WBC RBC Hgb Hct MCV MCH MCHC RDW Plt Count Seg Neutrophils % Lymphocytes % Monocytes % Eosinophils % Basophils % Absolute Neutrophils Absolute Lymphocytes Absolute Monocytes Absolute Eosinophils Absolute Basophils Carbonic Acid 1.16 HCO3/H2CO3 Ratio 21:1 ABG pH 7.43 ABG pCO2 38.6 ABG pO2 64.9 L ABG HCO3 25.0 H ABG O2 Saturation 93.3 L ABG Base Excess 0.8 VBG pH VBG pCO2 VBG HCO3 VBG Base Excess FiO2 30% Sodium Potassium Chloride Carbon Dioxide Anion Gap BUN Creatinine Est GFR ( Amer) Est GFR (Non-Af Amer) Glucose Lactic Acid Calcium Magnesium 2.3 Total Bilirubin AST ALT Alkaline Phosphatase Total Protein Albumin Triglycerides 170 H Urine Color Urine Appearance Urine pH Ur Specific [place] Urine Protein Urine Glucose (UA) Urine Ketones Urine Blood Urine Nitrite Ur Leukocyte Esterase Urine WBC (Auto) Urine RBC (Auto) 01/10/19 01/10/19 01/11/19 21:55 21:55 03:47 Creatine Kinase 116 80 CK-MB (CK-2) 2.60 Troponin I 0.052 01/11/19 01/11/19 01/11/19 03:47 10:35 10:35 Creatine Kinase 525 H CK-MB (CK-2) 2.98 6.92 H Troponin I 0.144 0.183 Impressions: Chest X-Ray 01/11/19 06:00 IMPRESSION: No significant change. Assessment and Plan - Diagnosis (1) Acute exacerbation of chronic obstructive pulmonary disease (COPD) Is this a current diagnosis for this admission?: Yes Plan: Patient be treated with an aggressive pulmonary toilet utilizing nebulized Xopenex, Atrovent and Pulmicort. He will also receive intravenous Solu-Medrol. His respiratory failure will be treated as outlined below. 01/11/2019-at this time we will continue the systemic steroids and nebulizer treatments. Once off the ventilator we will initiate an inhaler regimen for home use. (2) Acute on chronic respiratory failure with hypoxia and hypercapnia Is this a current diagnosis for this admission?: Yes Plan: Patient's respiratory failure to be managed with endotracheal intubation and ventilation. A pulmonary consultation with Dr. Isaac will be obtained. She will be monitored closely in the ICU with frequent blood gas determinations to evaluate his respiratory status. 01/11/2019-the patient is currently on SIMV/PRVC with tidal volume of 550, rate of 20 and PEEP of 8. We will continue to try and wean FiO2 and wean patient from the ventilator as tolerated. Pulmonology is also following. (3) Chronic renal disease, stage III Is this a current diagnosis for this admission?: Yes Plan: Patient's renal status will be monitored frequently throughout his hospital course with metabolic profiles and magnesium levels on a daily basis. Patient was noted to have some peripheral edema on exam and bibasilar rales were also noted. He will be observed for any progression of his edema. If this would result I would recommend mild diuresis. He will also be treated with 2 mg of morphine sulfate IV every 2 hours on a as needed basis for acute pulmonary edema (rales/crackles). 01/11/2019-we will monitor the patient's intake and output. Will monitor his renal function and volume status. Urine output has been limited. He may require albumin and diuretic therapy. (4) Diabetes mellitus type 2 in obese Is this a current diagnosis for this admission?: Yes Plan: Patient's diabetes will be managed throughout his initial hospital course by obtaining every 6 hours blood sugars and treating them with sliding scale insulin for hyperglycemia. Additionally a hypoglycemia protocol will be in place. Hemoglobin A1c will be obtained to evaluate the patient's prior therapy efficacy. 01/11/2019-he is currently on Accu-Cheks and sliding scale coverage. We will continue this course of therapy at this for the time being. (5) Hypertension Qualifiers: Hypertension type: essential hypertension Qualified Code(s): I10 - Essential (primary) hypertension Is this a current diagnosis for this admission?: Yes Plan: Patient's hypertension will be treated with intravenous metoprolol 5 mg every 4 hours and/or intravenous hydralazine 20 mg IV every 4 hours as needed systolic blood pressure greater than 160 and/or diastolic blood pressure greater than 100. 01/11/2019-the patient currently has as needed intravenous medications. He is on multiple antihypertensive medications at home. Based on the vital signs I will add back his antihypertensives to keep his blood pressure in the normal range. (6) Elevated troponin Is this a current diagnosis for this admission?: Yes Plan: 01/11/2019-the patient had minimally elevated troponins. This could be due to his renal failure. We will monitor for any significant change.
[2019-01-12] MEDS: MIDAZOLAM HCL 50 MG/100 ML RTUINJ IV PRN (07:00)
--- NOTE | 2019-01-12 07:24 | RADIOLOGY REPORT (SQ) ---
EXAM DESCRIPTION: XR CHEST 1 VIEW COMPLETED DATE/TME: 01/12/2019 06:00 CLINICAL HISTORY: 83 years Male, On ventilator COMPARISON: One day prior. NUMBER OF VIEWS/TECHNIQUE: 1/AP FINDINGS: Streaky and patchy opacity at the right lung base. Moderate interstitial markings. Increased lung volume. Adequate appearing endotracheal tube. Adequate appearing enteric tube partially obscured. Normal cardiac silhouette size. No pneumothorax. Stable bony thorax. IMPRESSION: No significant change.
[2019-01-12] MEDS: BUDESONIDE NEB 0.5 MG/2 ML AMPUL NEB SCH (08:40)
[2019-01-12] MEDS: PANTOPRAZOLE SODIUM 40 MG VIAL IV SCH (09:40)
[2019-01-12] MEDS ORDERED: CEFTRIAXONE 1 GM/D5W RTU 1 GM/50 ML RTUPB IV SCH (10:00)
[2019-01-12] MEDS ORDERED: MORPHINE SULFATE 10 MG/ML INJ IV ONE (13:19)
[2019-01-12] MEDS ORDERED: MORPHINE SULFATE 10 MG/ML INJ IV PRN ×2 (13:20)
[2019-01-12] MEDS ORDERED: LORAZEPAM INJ 2 MG/1 ML VIAL IV PRN (13:21)
[2019-01-12] MEDS ORDERED: MORPHINE SULFATE 10 MG/ML INJ ONE (13:26)
--- NOTE | 2019-01-12 13:50 | XCELERA REPORT ---
[address] [address] Transthoracic Echocardiogram Report Name: ESPERANZA MEANS Age: 83 yrs Gender: Male : 1935 Patient Status: Inpatient Patient Location: ICU^610^A Study Date: 01/11/2019 02:27 PM Height: 69 in Weight: 187 lb BSA: 2.0 m2 Procedure: A two-dimensional transthoracic echocardiogram with color flow and Doppler was performed. The study was technically difficult with many images being suboptimal in quality. Reason For Study: fluid retention History: fluid retention / CHF. Ordering Physician: CLEMENCIA MCALLISTER Performed By: Zaina Davis Interpretation Summary The left ventricle is normal in size. There is normal left ventricular wall thickness. The left ventricular ejection fraction is within normal limits. LV EF is 65% Doppler measurements suggest impaired left ventricular relaxation, which is associated with grade I/IV or mild diastolic dysfunction The left ventricular wall motion is normal. There is no thrombus. Cannot assess ASD,VSD , or PFO. Right atrium not well visualized secondary to technical limitations The left atrial size is normal. There is no evidence of mitral valve prolapse. There is no vegetation seen on the mitral valve. There is no mitral valve stenosis. There is no mitral regurgitation noted. There is no aortic valvular vegetation. There is aortic sclerosis without aortic stenosis. There is no aortic valve stenosis No aortic regurgitation is present. There is no tricuspid stenosis. There is a trace amount of tricuspid regurgitation Unable to calculate RVSP due to insufficient TR jet. There is no pulmonic valvular stenosis. There is no pulmonic valvular regurgitation. The aortic root is normal size. There is no pericardial effusion. MMode/2D Measurements & Calculations IVSd: 1.1 cm LVIDd: 5.3 cm FS: 42.5 % Ao root diam: 3.0 cm LVIDs: 3.0 cm EDV(Teich): 134.4 ml Ao root area: 7.1 cm2 LVPWd: 1.1 cm ESV(Teich): 36.2 ml EF(Teich): 73.1 % Doppler Measurements & Calculations MV E max yonis: MV dec slope: Ao V2 max: LV V1 max P.0 cm/sec 374.2 cm/sec2 119.4 cm/sec 3.5 mmHg MV A max yonis: MV dec time: 0.26 sec Ao max PG: LV V1 max: 122.6 cm/sec 5.7 mmHg 93.1 cm/sec MV E/A: 0.78 PA V2 max: 126.7 cm/sec PA max P.4 mmHg Left Ventricle The left ventricle is normal in size. There is normal left ventricular wall thickness. The left ventricular ejection fraction is within normal limits. LV EF is 65%. Doppler measurements suggest impaired left ventricular relaxation, which is associated with grade I/IV or mild diastolic dysfunction. The left ventricular wall motion is normal. There is no thrombus. Cannot assess ASD,VSD , or PFO. Right Ventricle The right ventricle is not well visualized secondary to technical limitations. Atria Right atrium not well visualized secondary to technical limitations. The left atrial size is normal. Mitral Valve There is no evidence of mitral valve prolapse. There is no vegetation seen on the mitral valve. There is no mitral valve stenosis. There is no mitral regurgitation noted. Aortic Valve There is no aortic valvular vegetation. There is aortic sclerosis without aortic stenosis. There is no aortic valve stenosis. No aortic regurgitation is present. Tricuspid Valve There is no tricuspid stenosis. There is a trace amount of tricuspid regurgitation. Unable to calculate RVSP due to insufficient TR jet. Pulmonic Valve There is no pulmonic valvular stenosis. There is no pulmonic valvular regurgitation. Great Vessels The aortic root is normal size. The inferior vena cava was not visualized. Effusions There is no pericardial effusion. : CLEMENCIA MCALLISTER > Ara Calix
[2019-01-12 15:19] VITALS: BP 165/63
--- NOTE | 2019-01-13 06:06 | ADVANCED CARE ---
- Diagnosis (1) Acute exacerbation of chronic obstructive pulmonary disease (COPD) Diagnosis Current: Yes (2) Acute on chronic respiratory failure with hypoxia and hypercapnia Diagnosis Current: Yes (3) Chronic renal disease, stage III Diagnosis Current: Yes (4) Diabetes mellitus type 2 in obese Diagnosis Current: Yes (5) Hypertension Diagnosis Current: Yes (6) Elevated troponin Diagnosis Current: Yes Attendance: Myself and the ICU nurse (Jonel Alamo) As well as the patient's , daughter and 1 of his sons. Resuscitation Status: Do Not Resuscitate Discussion: Was able to obtain more information from the patient's family. The patient had end-stage COPD. He was independent prior to his illness. He had refused to go to the hospital several times. Last week he called his son to be with him which is unusual. Likewise he called his (they are ) who lives across the street to make him breakfast and comes it with him. Family reports that over the last several days they would find him hunched over a table with his elbows on the table having difficulty breathing. I explained that with the COPD and is very poor respiratory capacity it would be very difficult to wean him from the ventilator. I also explained that even if we are successful he would be markedly debilitated and it would be very unlikely that he would be able to live independently and be safe. We reviewed his deteriorating renal function despite a +3 L fluid balance. The family was clear that the patient would not want to be in the situation medically and would never want to spend an extended period of time, if not permanently, in a fdc facility. We reviewed the potential interventions of ongoing aggressive therapy. We also reviewed the mechanics of a comfort care only plan. The patient has another son. Son who was present stepped up to call his brother. The family members present all agreed that their father/ would not want to be kept alive by artificial means. With his extremely poor prognosis and limited meaningful recovery it was decided that the patient would want to be comfort care at this point and they were all in agreement. Care Planning Goals: To determine comfort care measures or not Document(s) Completed: None Time Spent: 30 minutes
--- NOTE | 2019-01-13 06:11 | Death Summary ---
Summary Date : 01/12/19 Time of :: 14:30 Autopsy: No Resuscitation Status: Comfort Measures Only - Final Diagnosis (1) Acute exacerbation of chronic obstructive pulmonary disease (COPD) Is this a current diagnosis for this admission?: Yes (2) Acute on chronic respiratory failure with hypoxia and hypercapnia Is this a current diagnosis for this admission?: Yes (3) Chronic renal disease, stage III Is this a current diagnosis for this admission?: Yes (4) Diabetes mellitus type 2 in obese Is this a current diagnosis for this admission?: Yes (5) Hypertension Is this a current diagnosis for this admission?: Yes (6) Elevated troponin Is this a current diagnosis for this admission?: Yes Hospital Course:: This previously independent 83-year-old patient with end-stage pulmonary disease was exhibiting decline over the last week or 2 with a very significant downward turn over the last 3 to 4 days. He resisted going to the hospital several times as both his and son tried to convince him otherwise. Finally when he was found by his and extremis, she called EMS. Because of his condition he was intubated in the field. He was brought to the hospital and admitted to the intensive care unit. Imaging revealed a right lower lobe pneumonia as well as severe COPD. Sputum culture grew Branhamella catarrhalis. He was also and acute on chronic kidney f ailure. Despite IV fluids (net 3 L positive balance) the patient's renal function continued to decline. His urine output dropped. Because of his advanced age and underlying comorbidities I did have a conversation with his family. After reviewing all of the clinical data and his unlikely meaningful recovery the family opted for comfort care measures. Once the family was ready to make the change, the patient's medications were discontinued except for morphine, Ativan and acetaminophen. He was given a 10 mg dose of IV morphine and terminally extubated. He within hours. Time of this was 14:30 on January 12. Cause of was exacerbation of chronic obstructive pulmonary disease secondary to pneumonia Other contributing factors for the acute on chronic kidney failure The family was present at the bedside when the patient
[2019-01-13] MEDS ORDERED: VANCOMYCIN HCL 1,000 MG in DEXTROSE 5%-WATER 250 ML IV SCH (18:00)
== END 2019-01-12 14:30 | disposition expired | DRG 208 ==
LOC: ER 21:55 → EH 01-11 00:51 → ICU 01-11 02:25
PROVIDERS: ADMIT Emergency Medicine; ATTEND Emergency Medicine
PROC: 5A1945Z Respiratory Ventilation, 24-96 Consecutive Hours (ICD-10-PCS; principal; 2019-01-10)
DX: J44.0 Chronic obstructive pulmonary disease with (acute) lower respiratory infection (principal); J96.22 Acute and chronic respiratory failure with hypercapnia; J96.21 Acute and chronic respiratory failure with hypoxia; J15.8 Pneumonia due to other specified bacteria; N17.9 Acute kidney failure, unspecified; E11.22 Type 2 diabetes mellitus with diabetic chronic kidney disease; E87.5 Hyperkalemia; N18.3 Chronic kidney disease, stage 3 (moderate); J44.1 Chronic obstructive pulmonary disease with (acute) exacerbation; I12.9 Hypertensive chronic kidney disease with stage 1 through stage 4 chronic kidney disease, or unspecified chronic kidney disease; E66.9 Obesity, unspecified; R74.8 Abnormal levels of other serum enzymes; Z51.5 Encounter for palliative care; Z68.27 Body mass index [BMI] 27.0-27.9, adult; Z87.01 Personal history of pneumonia (recurrent); Z87.891 Personal history of nicotine dependence; Z83.3 Family history of diabetes mellitus; Z82.49 Family history of ischemic heart disease and other diseases of the circulatory system
CPT/HCPCS: 36415; 71045; 80048; 80053; 81001; 82550; 82553; 82803; 82962; 83036; 83605; 83735; 83880; 84439; 84443; 84478; 84481; 84484; 85025; 85027; 85610; 87040; 87070; 87077; 87086; 87186; 87205; 93005; 93010; 93306; 94002; 94003; 96361; 96374; 99291; J0696; J1644; J1815; J1940; J2250; J2270; J2704; J2920; J2930; J3370; J3490; J7030; J7040; J7060; P9047; S0164